=== PATIENT | male | born 1940 | race Caucasian/White ===

== ENCOUNTER → 2016-06-18 | Outpatient (CLI) | payer BC ==
[~2016-06-18] MED LIST: ASCO100061 PO; ATEN-175 PO; ATOR-22 PO; BNC/40 PO; ECON118C TOP; HYDR12.56 PO; LOSA100T65 PO; MAGN1TAB19 PEG; MAGN250T22 PO; MULT-506 PO; NIFE1TAB53 PO; POTA-335 PO; TRMO180 TOP; VTMEUNK PO
[2016-06-18 14:04] LABS: BASO % 0.4 %; BASO ABS # 0.03 K/uL (0-0.2); COMPLETE YES; EOS % 2.3 %; HEMATOCRIT 42.6 % (42-52); IG% 0.3 %; LYMPH ABS # 1.74 K/uL (1.2-3.4); MEAN CELL VOLUME 101.4 fL (80-100); MEAN CORPUSCULAR HEMOGLOBIN 35.2 pg (25-34); MEAN CORPUSCULAR HGB CONC 34.7 g/dl (32-36); MEAN PLATELET VOLUME 10.5 fL (7.4-10.4); MONO % 9.7 %; NEUT % 64.3 %; PLATELET COUNT 153 K/uL (130-400); WHITE BLOOD COUNT 7.55 K/uL (4.8-10.8)
[2016-06-18 14:14] LABS: BLOOD UREA NITROGEN 9 mg/dl (7-18); CALCIUM 8.4 mg/dl (8.5-10.1); CARBON DIOXIDE 28 mmol/L (21-32); CHLORIDE 104 mmol/L (98-107); CREATININE 0.69 mg/dl (0.60-1.40); GLUCOSE 108 mg/dl (70-99); POTASSIUM 3.6 mmol/L (3.5-5.1); SODIUM 142 mmol/L (136-145)
--- NOTE | 2016-06-24 12:05 | CODING QUERY MEDICAL NECESSITY ---
SUPPORTING DIAGNOSIS NEEDED A supporting diagnosis is required for the test/procedure performed on this patient in order for us to be reimbursed by the patient's insurance. Please provide a supporting diagnosis for the following test/procedure listed below next to the test name along with your signature. *If there is no additional diagnosis for this patient that would support the following test/procedure please document that below next to the test/procedure. Test(s)/Procedure(s) that require a supporting diagnosis: * VITAMIN B-12 LEVEL DIAGNOSIS: * DOS: 06/18/16 Provider Signature: Date: Thank you Patricia Lees Health Information Management Once completed, please kindly fax back to [phone] For questions please call [phone]
[2016-06-24 16:38] LABS: METHYLMALONIC ACID 70 NMOL/L (87-318)
== END | disposition home or self-care (01) ==
LOC: C.LABBC 09:50
PROVIDERS: ATTEND Internal Medicine Geriatric Medicine
DX: I10 Essential (primary) hypertension (principal); E78.5 Hyperlipidemia, unspecified; R73.9 Hyperglycemia, unspecified; D64.9 Anemia, unspecified; Q99.8 Other specified chromosome abnormalities; R60.9 Edema, unspecified

== ENCOUNTER → 2016-08-26 | Outpatient (CLI) | payer BC ==
[~2016-08-26] MED LIST changes: +ACET-1311 PO; +ACET650S10 RE; +BISA10SU38 PR; +CHOL4POW11 PO; +FEXO3TAB PO; +FOLI1TAB7 PO; +FRRS300 PO; +FRS/40 PO; +HALO5TAB PO; +IPRASOL4 INH; +LCTL45 PO; +MEGE40TA13 PO; +MELA1TAB5 PO; +MGCUDL400 PO; +MISCCAP80 PO; +MOMLX PO; +NICO1DIS9 TD; +ONDA4TAB46 PO; +RIFA550T2 PO; +SODIENE PR; +SPIR25TA PO; +THIA100T11 PO; +TNR25 PO
[2016-08-26 15:13] LABS: BLOOD UREA NITROGEN 15 mg/dl (7-18); BUN/CREATININE RATIO 17.7 (10-20); CARBON DIOXIDE 28 mmol/L (21-32); CHLORIDE 104 mmol/L (98-107); CREATININE 0.83 mg/dl (0.60-1.40); GLUCOSE 97 mg/dl (70-99); PHOSPHORUS 3.4 mg/dl (2.5-4.9); POTASSIUM 3.3 mmol/L (3.5-5.1); SODIUM 142 mmol/L (136-145)
[2016-08-26 15:17] LABS: CALCIUM 9.6 mg/dl (8.5-10.1)
== END | disposition home or self-care (01) ==
LOC: C.LABBC 10:10
PROVIDERS: ATTEND Internal Medicine Geriatric Medicine
DX: I10 Essential (primary) hypertension (principal)

== ENCOUNTER 2016-10-07 11:22 | Emergency (ER) | payer BC ==
[~2016-10-07] VITALS: Ht 180.3 cm; Wt 112.0 kg
[~2016-10-07 11:22] MED LIST changes: -ACET-1311 PO; -ACET650S10 RE; -BISA10SU38 PR; -CHOL4POW11 PO; -ECON118C TOP; -FEXO3TAB PO; -FOLI1TAB7 PO; -FRRS300 PO; -FRS/40 PO; -HALO5TAB PO; -HYDR12.56 PO; -IPRASOL4 INH; -LCTL45 PO; -LOSA100T65 PO; -MAGN1TAB19 PEG; -MEGE40TA13 PO; -MELA1TAB5 PO; -MGCUDL400 PO; -MISCCAP80 PO; -MOMLX PO; -NICO1DIS9 TD; -ONDA4TAB46 PO; -RIFA550T2 PO; -SODIENE PR; -SPIR25TA PO; -THIA100T11 PO; -TNR25 PO; -TRMO180 TOP
[2016-10-07] MEDS ORDERED: SODIUM CHLORIDE 0.9% 1000ML 1,000 ML IV STA (11:28)
[2016-10-07] MEDS ORDERED: THIAMINE HCL 100 MG/ML 2 ML VIAL IV STA (11:28)
[2016-10-07 11:29] VITALS: TEMP 36.7; Ht 180.3 cm; Wt 112.0 kg
--- NOTE | 2016-10-07 11:33 | EMERGENCY ROOM VISIT NOTE ---
History Report prepared by Amie: Judi Skelton Under the Supervision of: Dr. Yossi Jones D.O. 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 The patient states that he was walking up the stairs in his house and does not remember why he was going upstairs. He reports that he tripped when he was walking up the stairs and fell down to the bottom of the stairs. He notes that he was drinking today and had one screwdriver but usually has about 3 drinks a day. The patient's states that after the fall the patient was not talking and was confused. She notes that he was able to walk and he got himself up into a chair. He denies any chest pain, head pain, neck pain, abdominal pain, incontinence, and seizure-like activity. He notes a history of hypertension. 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 Review of Systems See HPI for pertinent positives & negatives. A total of 10 systems reviewed and were otherwise negative. Past Medical & Surgical Surgical Problems: (1) Hx of shoulder replacement Family History No pertinent family history stated. Social History Smoking Status: Current Every Day Smoker Alcohol Use: heavy Drug Use: none Marital Status: Occupation Status: retired Current/Historical Medications Scheduled Ascorbic Acid (Ascorbic Acid), 1,000 MG PO DAILY Atenolol (Tenormin), 100 MG PO DAILY Atorvastatin (Lipitor), 20 MG PO HS Econazole Nitrate (Econazole Nitrate), Unknown Dose TOP BID Hydrochlorothiazide (Hctz), 12.5 MG PO QAM Losartan Potassium (Cozaar), 100 MG PO QAM Magnesium Oxide (Mg Supplement (Magnesium Oxide), 400 MG PEG QPM Multivitamin (Multivitamin), 1 TAB PO DAILY Olmesartan Medoxomil (Benicar), 40 MG PO DAILY Tocopheryl Acet,Dl-Alpha (Vitamin E Unkown Dose), 1,000 INTER.UNIT PO DAILY Triamcinolone Acet (Triamcinolone Acetonide), Unknown Dose TOP BID Allergies Coded Allergies: No Known Allergies (Verified , 10/07/16) Physical Exam Vital Signs Date Time Temp Pulse Resp B/P (MAP) Pulse Ox O2 Delivery O2 Flow Rate FiO2 10/07/16 13:30 59 22 169/92 95 Room Air 10/07/16 12:14 56 10/07/16 11:45 97 Room Air 10/07/16 11:29 36.7 69 20 167/112 97 Room Air Physical Exam GENERAL: Patient is awake, alert, mildly anxious appearing but comfortable, cervical collar was applied prior to arrival. EYES: The conjunctivae are clear. The pupils are round and reactive. EARS, NOSE, MOUTH AND THROAT: The nose is without any evidence of any deformity. Mucous membranes are moist tongue is midline NECK: Cervical collar was removed, pt has no tenderness over midline ROM was unrestricted and without pain. RESPIRATORY: Lung sounds diminished at both bases no tachypnea or conversational dyspnea noted. CARDIOVASCULAR: Regular rate and rhythm noted there no murmurs rubs or gallops normal S1 normal S2 GASTROINTESTINAL: The abdomen is soft. Bowel sounds are present in all quadrants. Abdomen is nontender BACK: No midline tenderness or or step-off noted range of motion in flexion extension as well as rotation no signs of muscle spasm noted MUSCULOSKELETAL/EXTREMITIES: There is no evidence of gross deformity full range of motion is noted in the hips and shoulders SKIN: There is no obvious evidence of any rash. There are no petechiae, pallor or cyanosis noted. Trace pedal edema bilaterally. There is a large left occipital and parietal hematoma noted. NEUROLOGIC: Patient is awake alert and oriented x3 strength is symmetric patellar reflexes are 2+ bilaterally Medical Decision & Procedures ER Provider Diagnostic Interpretation: Radiology results as stated below per my review and radiologist interpretation: PELVIS 1 OR 2 VIEW ROUTINE FINDINGS: The sacroiliac joints and symphysis pubis are intact. There is extensive vascular calcification. There is no fracture within the pelvis. There is mild to moderate bilateral hip osteoarthritis. Multilevel degenerative disc disease is noted within visualized portions of the lumbar spine. There is subtle cortical irregularity right femoral neck. IMPRESSION: Subtle cortical irregularity of the right femoral neck. A fracture is considered unlikely and this is likely chronic however if persistent right hip pain, a CT is recommended. Electronically signed by: Glynn Bartholomew M.D. 10/07/2016 1:23 PM Dictated Date/Time: 10/07/2016 1:[address] NONCONTRAST Findings: Mild mucosal thickening within the paranasal sinuses. The mastoid air cells are clear. A large left posterior scalp hematoma. There is no mass, midline shift, or acute infarct. Trace subarachnoid hemorrhage at the left sylvian fissure and left parietal lobe. Trace extra-axial hematoma within the left frontal lobe which measures up to 4 mm in thickness. Impression: 1. Trace extra-axial hematoma within the left frontal lobe which measures 4 mm in thickness. This is too small to this time but could represent a tiny subdural hematoma versus an epidural hematoma. No adjacent calvarial fracture. [address] follow-up is recommended to ensure stability. 2. There is also trace subarachnoid hemorrhage/cortical contusion at the left sylvian fissure and left parietal lobe.. 3. Large left posterior scalp hematoma. Electronically signed by: Jan Hilario M.D. 10/07/2016 12:56 PM Dictated Date/Time: 10/07/2016 12:[address] OF THE CERVICAL SPINE WITHOUT CONTRAST FINDINGS: Craniocervical junction is intact. There is no acute cervical spine fracture. There is severe multilevel degenerative disc disease and facet arthrosis of the cervical spine. There is no prevertebral edema. IMPRESSION: 1. No acute cervical spine fracture or subluxation. 2. Severe multilevel degenerative disc disease and facet arthrosis of the cervical spine. Electronically signed by: Glynn Bartholomew M.D. 10/07/2016 12:56 PM Dictated Date/Time: 10/07/2016 12:53 PM CHEST 2 VIEWS ROUTINE FINDINGS: There are multiple old bilateral rib fractures. There is a right shoulder arthroplasty. No pneumothorax or pleural effusion is present. Cardiomediastinal silhouette is stable. There is no evidence of pulmonary edema. IMPRESSION: No acute cardiopulmonary findings. Electronically signed by: Glynn Bartholomew M.D. 10/07/2016 1:18 PM Dictated Date/Time: 10/07/2016 1:16 PM Laboratory Results 10/07/16 12:11 Red Blood Count 3.43, Mean Corpuscular Volume 102.6, Mean Corpuscular Hemoglobin 35.6, Mean Corpuscular Hemoglobin Concent 34.7, Mean Platelet Volume 9.4, Neutrophils (%) (Auto) 62.4, Lymphocytes (%) (Auto) 22.2, Monocytes (%) ( Auto) 12.0, Eosinophils (%) (Auto) 2.6, Basophils (%) (Auto) 0.4, Neutrophils # (Auto) 3.34, Lymphocytes # (Auto) 1.19, Monocytes # (Auto) 0.64, Eosinophils # ( Auto) 0.14, Basophils # (Auto) 0.02 10/07/16 12:11 Test 10/07/16 12:11 10/07/16 12:28 White Blood Count 5.35 K/uL (4.8-10.8) Red Blood Count 3.43 M/uL (4.7-6.1) Hemoglobin 12.2 g/dL (14.0-18.0) Hematocrit 35.2 % (42-52) Mean Corpuscular Volume 102.6 fL (80-100) Mean Corpuscular Hemoglobin 35.6 pg (25-34) Mean Corpuscular Hemoglobin Concent 34.7 g/dl (32-36) Platelet Count 103 K/uL (130-400) Mean Platelet Volume 9.4 fL (7.4-10.4) Neutrophils (%) (Auto) 62.4 % Lymphocytes (%) (Auto) 22.2 % Monocytes (%) (Auto) 12.0 % Eosinophils (%) (Auto) 2.6 % Basophils (%) (Auto) 0.4 % Neutrophils # (Auto) 3.34 K/uL (1.4-6.5) Lymphocytes # (Auto) 1.19 K/uL (1.2-3.4) Monocytes # (Auto) 0.64 K/uL (0.11-0.59) Eosinophils # (Auto) 0.14 K/uL (0-0.5) Basophils # (Auto) 0.02 K/uL (0-0.2) RDW Standard Deviation 51.8 fL (36.4-46.3) RDW Coefficient of Variation 13.7 % (11.5-14.5) Immature Granulocyte % (Auto) 0.4 % Immature Granulocyte # (Auto) 0.02 K/uL (0.00-0.02) Prothrombin Time 11.4 SECONDS (9.0-12.0) Prothromb Time International Ratio 1.1 (0.9-1.1) Activated Partial Thromboplast Time 27.8 SECONDS (21.0-31.0) Partial Thromboplastin Ratio 1.1 Anion Gap 10.0 mmol/L (3-11) Est Creatinine Clear Calc Drug Dose 98.2 ml/min Estimated GFR () 100.0 Estimated GFR (Non- 86.3 BUN/Creatinine Ratio 14.2 (10-20) Calcium Level 8.9 mg/dl (8.5-10.1) Magnesium Level 1.4 mg/dl (1.8-2.4) Total Bilirubin 0.7 mg/dl (0.2-1) Direct Bilirubin 0.3 mg/dl (0-0.2) Aspartate Amino Transf (AST/SGOT) 81 U/L (15-37) Alanine Aminotransferase (ALT/SGPT) 44 U/L (12-78) Alkaline Phosphatase 88 U/L (45-117) Total Creatine Kinase 63 U/L (39-308) Creatine Kinase MB 1.9 ng/ml (0.5-3.6) Creatine Kinase MB Ratio 3.0 (0-3.0) Troponin I 0.016 ng/ml (0-0.045) Total Protein 6.8 gm/dl (6.4-8.2) Albumin 3.1 gm/dl (3.4-5.0) Thyroid Stimulating Hormone (TSH) 1.820 uIu/ml (0.300-4.500) Free Thyroxine 1.01 ng/dl (0.80-1.60) Ethyl Alcohol mg/dL 153.0 mg/dl (0-3) Bedside Glucose 94 mg/dl (70-99) Laboratory results per my review. Medications Administered Medications (Trade) Dose Ordered Sig/Roxanne Route Start Time Stop Time Status Last Admin Dose Admin Sodium Chloride 1,000 ml @ 125 mls/hr Q8H STAT IV 10/07/16 11:28 10/07/16 19:27 10/07/16 12:21 125 MLS/HR Thiamine HCl (Vitamin B-1 Inj) 100 mg NOW STAT IV 10/07/16 11:28 10/07/16 11:30 DC 10/07/16 12:21 100 MG Sodium Chloride 500 ml @ 999 mls/hr Q31M STAT IV 10/07/16 13:28 10/07/16 13:58 DC 10/07/16 14:02 999 MLS/HR Phenytoin Sodium 2250 mg/Sodium Chloride 145 ml @ 193.333 mls/hr NOW STAT IV 10/07/16 13:44 10/07/16 14:28 10/07/16 14:05 193.333 MLS/HR ECG Indication: syncope Rate (beats per minute): 54 Rhythm: atrial fibrillation Findings: other (no PVC, no acute ST segment abnormalities) Comparison ECG Date: 11/25/14 Change: Atrial Fibrillation is new ED Course 1124: The patient was evaluated in room C3. A complete history and physical examination were performed. 1128: Thiamine HCl 100mg IV, NSS 1,000 ml @ 125 mls/hr IV. 1325: I discussed the patient's case with Dr. Holt. After discussion of the results, we both fel that he would be better cared for at a tertiary care center. 1327: Magnesium Sulfate 2gm IV. 1328: NSS 500 ml @ 999 mls/hr IV. 1331: I discussed the patient's case with Dr. Mazariegos of neurosurgery at [facility]. The patient will be evaluated for further management. 1334: Dilantin IV 2250mg IV. 1344: Phenytoin Sodium 2250mg/Sodium Chloride 145ml @ 193.333 mls/hr IV. 1345: I reevaluated and updated the patient. 1353: Upon reevaluation, the patient is doing well. I discussed results and treatment plan with the patient. He verbalizes agreement and understanding. I spoke with Dr. Mazariegos of the [facility]. The patient will be evaluated for further management and care at [facility]. Medical Decision Differential diagnosis: Etiologies such as vasovagal event, infection, hypoglycemia, electrolyte abnormalities, cardiac sources, intracerebral event, toxicologic, neurologic, as well as others were entertained. Medication Reconciliation: I attest that I have personally reviewed the patient' s current medications list. Patient was found to have a slightly elevated blood pressure due to circumstances of chest pain. I do not believe that the patient requires hypertension monitoring. Additional history is obtained from the patient's significant other. Additional history is obtained from the prehospital personnel. The patient is a 76-year-old male who presented to the emergency department after a fall. According to the patient's significant other the patient was walking up the stairs and then it is unclear if the patient fell or had a syncopal episode but he was found at the bottom of the stairs. There is no definite reported loss of consciousness but the patient was very dazed and it sounds as though he had some bit of time before he was able to be awake alert and oriented times 3. The patient arrived at the emergency department with a rigid cervical collar in place. He had no back tenderness and his cervical spine was clinically cleared as well as radiographically cleared. The patient had significant signs of head trauma and also had alcohol in his system. He admits to drinking alcohol almost on a daily basis. He is currently taking magnesium. He states that he has been compliant with his other medications. The patient was not clinically intoxicated. He understood what I was asking him and I feel that he was very forthcoming with his answers. The patient was found have a significant scalp hematoma as well as signs of intracranial bleeding. I discussed the patient's laboratory and radiographic studies with him. I discussed his case with the on-call [facility] hospitalist but given the patient's comorbidities and his new onset atrial fibrillation he may require a neurosurgical evaluation prior to beginning any anticoagulation treatment for his atrial fibrillation. Anticoagulation therapy in this patient would be very risky given his current alcohol use. For this reason I discussed his case with the on-call neurosurgical service at [facility]. They've agreed to accept the patient in transfer. Transfer paperwork was filled out by myself. At the request of neurosurgeon the patient was given 20 milligrams per kilogram of Dilantin. He was also treated with thiamine IV fluids and IV magnesium. He was reevaluated multiple times. The patient was agreeable with the plan. Consults Time Called: 1321 Consulting Physician: Dr. Holt Returned Call: 1321 I discussed the patient's case with Dr. Holt. After discussion of the results, we both fel that he would be better cared for at a tertiary care center. Additional Consults: Time Called: 1324 Consulted Physician: Dr. Mazariegos Returned Call: [phone] Additional Comments: I discussed the patient's case with Dr. Mazariegos of neurosurgery at [facility]. The patient will be evaluated for further management. Impression Primary Impression: Syncope Additional Impressions: Head injury Subarachnoid hemorrhage Traumatic subdural hematoma Left parietal scalp hematoma Hypomagnesemia New onset a-fib Alcohol intoxication Critical Care I have personally spent greater than 45 minutes of critical care time in the direct management of this patient. This includes bedside care, interpretation of diagnostic studies, and testing, discussion with consultants, patient, and family members, and other required patient management activities. This 45 minutes is in excess of all separately billable procedures. Scribe Attestation The scribe's documentation has been prepared under my direction and personally reviewed by me in its entirety. I confirm that the note above accurately reflects all work, treatment, procedures, and medical decision making performed by me. Departure Information Dispostion Transfer Acute Care Facility Referrals Vj Elmore M.D. (PCP) Problem Qualifiers Primary Impression: Syncope Syncope type: unspecified Qualified Codes: R55 - Syncope and collapse Additional Impressions: Head injury Encounter type: initial encounter Qualified Codes: S09.90XA - Unspecified injury of head, initial encounter Traumatic subdural hematoma Encounter type: initial encounter Loss of consciousness presence/duration: with LOC of unspecified duration Qualified Codes: S06.5X9A - Traumatic subdural hemorrhage with loss of consciousness of unspecified duration, initial encounter Left parietal scalp hematoma Encounter type: initial encounter Qualified Codes: S00.03XA - Contusion of scalp, initial encounter Alcohol intoxication Complication of substance-induced condition: uncomplicated Qualified Codes: F10.920 - Alcohol use, unspecified with intoxication, uncomplicated
[2016-10-07 11:45] VITALS: O2SAT 97
[2016-10-07] MEDS ORDERED: HYDR12.56 PO (11:48)
[2016-10-07] MEDS ORDERED: MAGN1TAB19 PEG (11:48)
[2016-10-07] MEDS ORDERED: TRMO180 TOP (11:48)
[2016-10-07] MEDS ORDERED: LOSA100T65 PO (11:48)
[2016-10-07] MEDS ORDERED: ECON118C TOP (11:48)
[2016-10-07 12:34] LABS: BASO % 0.4 %; BASO ABS # 0.02 K/uL (0-0.2); COMPLETE YES; EOS % 2.6 %; HEMATOCRIT 35.2 % (42-52); IG% 0.4 %; LYMPH % 22.2 %; LYMPH ABS # 1.19 K/uL (1.2-3.4); MEAN CELL VOLUME 102.6 fL (80-100); MEAN CORPUSCULAR HEMOGLOBIN 35.6 pg (25-34); MEAN CORPUSCULAR HGB CONC 34.7 g/dl (32-36); MEAN PLATELET VOLUME 9.4 fL (7.4-10.4); NEUT % 62.4 %; PLATELET COUNT 103 K/uL (130-400); RED BLOOD COUNT 3.43 M/uL (4.7-6.1); WHITE BLOOD COUNT 5.35 K/uL (4.8-10.8)
[2016-10-07 12:42] LABS: INR 1.1 (0.9-1.1); PARTIAL THROMBOPLASTIN RATIO 1.1; PROTHROMBIN TIME (PATIENT) 11.4 SECONDS (9.0-12.0)
[2016-10-07 12:52] LABS: BUN/CREATININE RATIO 14.2 (10-20); CALCIUM 8.9 mg/dl (8.5-10.1); CREATININE 0.84 mg/dl (0.60-1.40); MAGNESIUM 1.4 mg/dl (1.8-2.4); POTASSIUM 3.7 mmol/L (3.5-5.1)
--- NOTE | 2016-10-07 12:57 | DIAGNOSTIC IMAGING REPORT ---
CT OF THE CERVICAL SPINE WITHOUT CONTRAST CLINICAL HISTORY: Fall. COMPARISON STUDY: No previous studies for comparison. TECHNIQUE: Helical axial images of the cervical spine were obtained without IV contrast. Sagittal and coronal reconstructions were viewed. FINDINGS: Craniocervical junction is intact. There is no acute cervical spine fracture. There is severe multilevel degenerative disc disease and facet arthrosis of the cervical spine. There is no prevertebral edema. IMPRESSION: 1. No acute cervical spine fracture or subluxation. 2. Severe multilevel degenerative disc disease and facet arthrosis of the cervical spine. Electronically signed by: Glynn Bartholomew M.D. 10/07/2016 12:56 PM Dictated Date/Time: 10/07/2016 12:53 PM
--- NOTE | 2016-10-07 12:58 | DIAGNOSTIC IMAGING REPORT ---
HEAD CT NONCONTRAST CT DOSE: 1145.93 mGy.cm HISTORY: Head injury. Fall. EVALUATE ALTERED MENTAL STATUS/WEAKNESS TECHNIQUE: Multiaxial CT images of the head were performed without the use of intravenous contrast. Automated exposure control was utilized for this study. Comparison: Head CT 03/23/2014. Findings: Mild mucosal thickening within the paranasal sinuses. The mastoid air cells are clear. A large left posterior scalp hematoma. There is no mass, midline shift, or acute infarct. Trace subarachnoid hemorrhage at the left sylvian fissure and left parietal lobe. Trace extra-axial hematoma within the left frontal lobe which measures up to 4 mm in thickness. Impression: 1. Trace extra-axial hematoma within the left frontal lobe which measures 4 mm in thickness. This is too small to this time but could represent a tiny subdural hematoma versus an epidural hematoma. No adjacent calvarial fracture. [address] follow-up is recommended to ensure stability. 2. There is also trace subarachnoid hemorrhage/cortical contusion at the left sylvian fissure and left parietal lobe.. 3. Large left posterior scalp hematoma. Electronically signed by: Jan Hilario M.D. 10/07/2016 12:56 PM Dictated Date/Time: 10/07/2016 12:51 PM
[2016-10-07 13:08] LABS: THYROID STIMULATING HORMONE 1.82 uIu/ml (0.300-4.500)
--- NOTE | 2016-10-07 13:19 | DIAGNOSTIC IMAGING REPORT ---
CHEST 2 VIEWS ROUTINE CLINICAL HISTORY: Altered mental status. Fall. COMPARISON STUDY: Chest radiograph November 27, 2014. FINDINGS: There are multiple old bilateral rib fractures. There is a right shoulder arthroplasty. No pneumothorax or pleural effusion is present. Cardiomediastinal silhouette is stable. There is no evidence of pulmonary edema. IMPRESSION: No acute cardiopulmonary findings. Electronically signed by: Glynn Bartholomew M.D. 10/07/2016 1:18 PM Dictated Date/Time: 10/07/2016 1:16 PM
--- NOTE | 2016-10-07 13:24 | DIAGNOSTIC IMAGING REPORT ---
PELVIS 1 OR 2 VIEW ROUTINE CLINICAL HISTORY: Fall. Weakness. COMPARISON STUDY: Sacroiliac joint radiographs August 17, 2009. FINDINGS: The sacroiliac joints and symphysis pubis are intact. There is extensive vascular calcification. There is no fracture within the pelvis. There is mild to moderate bilateral hip osteoarthritis. Multilevel degenerative disc disease is noted within visualized portions of the lumbar spine. There is subtle cortical irregularity right femoral neck. IMPRESSION: Subtle cortical irregularity of the right femoral neck. A fracture is considered unlikely and this is likely chronic however if persistent right hip pain, a CT is recommended. Electronically signed by: Glynn Bartholomew M.D. 10/07/2016 1:23 PM Dictated Date/Time: 10/07/2016 1:18 PM
[2016-10-07] MEDS: MAGNESIUM SULFATE 1GM / D5W 1 GM BAG IV STA ×2 (13:27→15:06)
[2016-10-07] MEDS ORDERED: SODIUM CHLORIDE 0.9% 500ML 500 ML IV STA (13:28)
[2016-10-07] MEDS ORDERED: PHENYTOIN SOD INJ 50 MG/ML 2 ML SYR IV STA (13:34)
[2016-10-07] MEDS ORDERED: SODIUM CHLORIDE 0.9% IV STA (13:44)
[2016-10-07] MEDS ORDERED: PHENYTOIN INFUSION IV STA (13:44)
--- NOTE | 2016-10-07 14:59 | DIAGNOSTIC IMAGING REPORT ---
RIGHT HIP 2 VIEWS HISTORY: Right hip pain. fall Right COMPARISON: None. FINDINGS: There is no fracture or dislocation. Soft tissues are unremarkable. No radiopaque foreign bodies. IMPRESSION: No fracture or dislocation within the right hip. Electronically signed by: Jan Hilario M.D. 10/07/2016 2:57 PM Dictated Date/Time: 10/07/2016 2:56 PM
[2016-10-07 15:55] VITALS: BP 153/90; PULSE 63; O2SAT 95
== END 2016-10-07 15:56 | disposition short-term general hospital (02) ==
LOC: EDBD 11:22 → C.EDC 11:24
DX: R55 Syncope and collapse (principal); S06.6X0A Traumatic subarachnoid hemorrhage without loss of consciousness, initial encounter; S06.5X0A Traumatic subdural hemorrhage without loss of consciousness, initial encounter; S09.90XA Unspecified injury of head, initial encounter; S00.03XA Contusion of scalp, initial encounter; W01.0XXA Fall on same level from slipping, tripping and stumbling without subsequent striking against object, initial encounter; I48.91 Unspecified atrial fibrillation; E83.42 Hypomagnesemia; F10.129 Alcohol abuse with intoxication, unspecified; Y90.6 Blood alcohol level of 120-199 mg/100 ml; F17.200 Nicotine dependence, unspecified, uncomplicated; Z96.619 Presence of unspecified artificial shoulder joint; Z79.899 Other long term (current) drug therapy

== ENCOUNTER → 2017-02-06 | Outpatient (CLI) | payer BC ==
[~2017-02-06] MED LIST changes: +ECON118C TOP; +HYDR12.56 PO; +LOSA100T65 PO; +MAGN1TAB19 PEG; -MAGN250T22 PO; -NIFE1TAB53 PO; -POTA-335 PO; +TRMO180 TOP
[2017-02-06 08:56] LABS: BASO % 0.2 %; BASO ABS # 0.02 K/uL (0-0.2); COMPLETE YES; EOS % 0.5 %; HEMATOCRIT 40.6 % (42-52); IG% 0.5 %; LYMPH % 20.2 %; LYMPH ABS # 2.62 K/uL (1.2-3.4); MEAN CELL VOLUME 91.2 fL (80-100); MEAN PLATELET VOLUME 10.5 fL (7.4-10.4); MONO % 9.2 %; NEUT % 69.4 %; PLATELET COUNT 251 K/uL (130-400); RED BLOOD COUNT 4.45 M/uL (4.7-6.1); WHITE BLOOD COUNT 12.96 K/uL (4.8-10.8)
[2017-02-06 09:03] LABS: ALT/SGPT 18 U/L (12-78); BLOOD UREA NITROGEN 44 mg/dl (7-18); BUN/CREATININE RATIO 19.4 (10-20); CALCIUM 10.1 mg/dl (8.5-10.1); CARBON DIOXIDE 18 mmol/L (21-32); CHLORIDE 102 mmol/L (98-107); CREATININE 2.28 mg/dl (0.60-1.40); GLUCOSE 96 mg/dl (70-99); POTASSIUM 5.5 mmol/L (3.5-5.1); SODIUM 130 mmol/L (136-145)
[2017-02-06 09:06] LABS: ALB/GLOB RATIO 0.7 (0.9-2); ALKALINE PHOSPHATASE 99 U/L (45-117); AST/SGOT 12 U/L (15-37)
== END ==
LOC: C.LABUPHEI 08:44
PROVIDERS: ATTEND Nurse Practitioner Family
DX: K74.60 Unspecified cirrhosis of liver (principal)

== ENCOUNTER → 2017-02-09 | Outpatient (CLI) | payer BC ==
[2017-02-09 09:40] LABS: BLOOD UREA NITROGEN 34 mg/dl (7-18); CREATININE 1.07 mg/dl (0.60-1.40); GLUCOSE 88 mg/dl (70-99)
[2017-02-09 09:41] LABS: BUN/CREATININE RATIO 32.1 (10-20); CALCIUM 9.7 mg/dl (8.5-10.1); CARBON DIOXIDE 20 mmol/L (21-32); CHLORIDE 102 mmol/L (98-107); POTASSIUM 4.9 mmol/L (3.5-5.1); SODIUM 132 mmol/L (136-145)
[2017-02-09 09:43] LABS: PARTIAL THROMBOPLASTIN RATIO 1.3; PROTHROMBIN TIME (PATIENT) 10.4 SECONDS (9.0-12.0)
== END ==
LOC: C.LABUPHEI 09:08
PROVIDERS: ATTEND Nurse Practitioner Family
DX: K74.60 Unspecified cirrhosis of liver (principal)

== ENCOUNTER → 2017-02-10 | Outpatient (CLI) | payer BC ==
[~2017-02-10] MED LIST changes: +ACET-1311 PO; +ACET650S10 RE; +BISA10SU38 PR; +CHOL4POW11 PO; +FEXO3TAB PO; +FOLI1TAB8 PO; +FRRS300 PO; +FRS/40 PO; +HALO5TAB PO; +IPRASOL4 INH; +LCTL45 PO; +MEGE40TA13 PO; +MELA1TAB5 PO; +MGCUDL400 PO; +MISCCAP80 PO; +MOMLX PO; +NICO1DIS9 TD; +ONDA4TAB46 PO; +RIFA550T2 PO; +SODIENE PR; +SPIR25TA PO; +THIA100T11 PO; +TNR25 PO
== END ==
LOC: C.LABUPHEI 08:03
PROVIDERS: ATTEND Nurse Practitioner Family
DX: Z01.89 Encounter for other specified special examinations (principal)

== ENCOUNTER → 2017-02-16 | Outpatient (CLI) | payer BC ==
[~2017-02-16] MED LIST changes: -ACET-1311 PO; -ACET650S10 RE; -BISA10SU38 PR; -CHOL4POW11 PO; -FEXO3TAB PO; -FOLI1TAB8 PO; -FRRS300 PO; -FRS/40 PO; -HALO5TAB PO; -IPRASOL4 INH; -LCTL45 PO; -MEGE40TA13 PO; -MELA1TAB5 PO; -MGCUDL400 PO; -MISCCAP80 PO; -MOMLX PO; -NICO1DIS9 TD; -ONDA4TAB46 PO; -RIFA550T2 PO; -SODIENE PR; -SPIR25TA PO; -THIA100T11 PO; -TNR25 PO
[2017-02-16 09:22] LABS: BLOOD UREA NITROGEN 45 mg/dl (7-18); CARBON DIOXIDE 18 mmol/L (21-32); CHLORIDE 102 mmol/L (98-107); CREATININE 1.42 mg/dl (0.60-1.40); GLUCOSE 103 mg/dl (70-99); POTASSIUM 5.1 mmol/L (3.5-5.1); SODIUM 131 mmol/L (136-145)
== END ==
LOC: C.LABUPHEI 08:51
PROVIDERS: ATTEND Nurse Practitioner Family
DX: K74.60 Unspecified cirrhosis of liver (principal)

== ENCOUNTER → 2017-02-19 | Outpatient (CLI) | payer BC ==
[2017-02-19 10:00] LABS: URINE APPEARANCE CLOUDY (CLEAR); URINE BILIRUBIN NEG (NEG); URINE COLOR YELLOW; URINE NITRITE POS (NEG); URINE SPECIFIC GRAVITY 1.021 (1.000-1.030); UROBILINOGEN NEG (NEG); ZZUR CULT IF INDIC CLEAN CATCH YES
[2017-02-19 10:02] LABS: BLOOD UREA NITROGEN 57 mg/dl (7-18); BUN/CREATININE RATIO 35.2 (10-20); CALCIUM 9.7 mg/dl (8.5-10.1); CARBON DIOXIDE 23 mmol/L (21-32); CHLORIDE 99 mmol/L (98-107); CREATININE 1.62 mg/dl (0.60-1.40); GLUCOSE 92 mg/dl (70-99); POTASSIUM 5.1 mmol/L (3.5-5.1); SODIUM 129 mmol/L (136-145)
[2017-02-19 10:03] LABS: MANUAL MICROSCOPIC REQUIRED? NO; REVIEW REQ? NO
[2017-02-19 10:05] LABS: ALB/GLOB RATIO 0.5 (0.9-2); ALKALINE PHOSPHATASE 97 U/L (45-117); ALT/SGPT 17 U/L (12-78); AST/SGOT 15 U/L (15-37)
[2017-02-19 10:30] LABS: HEMATOCRIT 35.1 % (42-52); MEAN CELL VOLUME 89.3 fL (80-100); MEAN CORPUSCULAR HEMOGLOBIN 30.8 pg (25-34); MEAN CORPUSCULAR HGB CONC 34.5 g/dl (32-36); PLATELET COUNT 233 K/uL (130-400); RED BLOOD COUNT 3.93 M/uL (4.7-6.1); WHITE BLOOD COUNT 9.94 K/uL (4.8-10.8)
[2017-02-19 10:32] LABS: BASO % 0.1 %; BASO ABS # 0.01 K/uL (0-0.2); COMPLETE YES; EOS % 0.6 %; HYPERSEGMENTED POLYS 1+; IG% 0.2 %; LYMPH % 14.4 %; LYMPH ABS # 1.43 K/uL (1.2-3.4); MONO % 10.4 %; NEUT % 74.3 %; TOXIC GRANULATION 1+; VACUOLIZATION 1+
== END ==
LOC: C.LABUPHEI 08:51
PROVIDERS: ATTEND Nurse Practitioner Family
DX: K74.60 Unspecified cirrhosis of liver (principal); R41.0 Disorientation, unspecified

== ENCOUNTER → 2017-02-23 | Outpatient (CLI) | payer BC ==
[2017-02-23 10:53] LABS: BLOOD UREA NITROGEN 46 mg/dl (7-18); BUN/CREATININE RATIO 39.6 (10-20); CALCIUM 10.3 mg/dl (8.5-10.1); CARBON DIOXIDE 21 mmol/L (21-32); CHLORIDE 101 mmol/L (98-107); CREATININE 1.16 mg/dl (0.60-1.40); GLUCOSE 102 mg/dl (70-99); POTASSIUM 4.7 mmol/L (3.5-5.1); SODIUM 135 mmol/L (136-145)
== END ==
LOC: C.LABUPHEI 09:27
PROVIDERS: ATTEND Nurse Practitioner Family
DX: K74.60 Unspecified cirrhosis of liver (principal)

== ENCOUNTER → 2017-02-26 | Outpatient (CLI) | payer BC ==
[2017-02-26 09:12] LABS: BASO % 0.1 %; BASO ABS # 0.01 K/uL (0-0.2); COMPLETE YES; EOS % 0.8 %; HEMATOCRIT 36.8 % (42-52); IG% 0.4 %; LYMPH % 12.9 %; LYMPH ABS # 1.81 K/uL (1.2-3.4); MEAN CELL VOLUME 90.2 fL (80-100); MEAN CORPUSCULAR HEMOGLOBIN 30.9 pg (25-34); MEAN CORPUSCULAR HGB CONC 34.2 g/dl (32-36); MEAN PLATELET VOLUME 9.6 fL (7.4-10.4); MONO % 8.3 %; NEUT % 77.5 %; PLATELET COUNT 274 K/uL (130-400); RED BLOOD COUNT 4.08 M/uL (4.7-6.1); WHITE BLOOD COUNT 14.06 K/uL (4.8-10.8)
[2017-02-26 09:19] LABS: BLOOD UREA NITROGEN 44 mg/dl (7-18); BUN/CREATININE RATIO 33.8 (10-20); CALCIUM 10.5 mg/dl (8.5-10.1); CARBON DIOXIDE 23 mmol/L (21-32); CHLORIDE 103 mmol/L (98-107); CREATININE 1.29 mg/dl (0.60-1.40); GLUCOSE 103 mg/dl (70-99); POTASSIUM 4.3 mmol/L (3.5-5.1); SODIUM 134 mmol/L (136-145)
== END ==
LOC: C.LABUPHEI 08:42
PROVIDERS: ATTEND Nurse Practitioner Family
DX: R19.7 Diarrhea, unspecified (principal); K74.60 Unspecified cirrhosis of liver

== ENCOUNTER → 2017-02-27 | Outpatient (CLI) | payer BC ==
[2017-02-27 08:58] LABS: BASO % 0.1 %; BASO ABS # 0.01 K/uL (0-0.2); COMPLETE YES; EOS % 1.2 %; HEMATOCRIT 38.8 % (42-52); IG% 0.5 %; LYMPH % 15.3 %; LYMPH ABS # 1.54 K/uL (1.2-3.4); MEAN CELL VOLUME 90.2 fL (80-100); MEAN CORPUSCULAR HEMOGLOBIN 30.5 pg (25-34); MEAN CORPUSCULAR HGB CONC 33.8 g/dl (32-36); MEAN PLATELET VOLUME 9.8 fL (7.4-10.4); MONO % 9.1 %; NEUT % 73.8 %; PLATELET COUNT 278 K/uL (130-400); WHITE BLOOD COUNT 10.08 K/uL (4.8-10.8)
[2017-02-27 09:12] LABS: ALB/GLOB RATIO 0.5 (0.9-2); ALKALINE PHOSPHATASE 89 U/L (45-117); ALT/SGPT 32 U/L (12-78); AST/SGOT 16 U/L (15-37); BLOOD UREA NITROGEN 42 mg/dl (7-18); BUN/CREATININE RATIO 33.5 (10-20); CALCIUM 10.5 mg/dl (8.5-10.1); CARBON DIOXIDE 22 mmol/L (21-32); CHLORIDE 104 mmol/L (98-107); CREATININE 1.24 mg/dl (0.60-1.40); GLUCOSE 89 mg/dl (70-99); SODIUM 141 mmol/L (136-145)
== END ==
LOC: C.LABUPHEI 08:40
PROVIDERS: ATTEND Nurse Practitioner Family
DX: K74.60 Unspecified cirrhosis of liver (principal)

== ENCOUNTER → 2017-02-28 | Outpatient (CLI) | payer BC ==
[~2017-02-28] MED LIST changes: +ACET-1311 PO; +ACET650S10 RE; +BISA10SU38 PR; +CHOL4POW11 PO; +FEXO3TAB PO; +FOLI1TAB7 PO; +FRRS300 PO; +FRS/40 PO; +HALO5TAB PO; +IPRASOL4 INH; +LCTL45 PO; +MEGE40TA13 PO; +MELA1TAB5 PO; +MGCUDL400 PO; +MISCCAP80 PO; +MOMLX PO; +NICO1DIS9 TD; +ONDA4TAB46 PO; +RIFA550T2 PO; +SODIENE PR; +SPIR25TA PO; +THIA100T11 PO; +TNR25 PO
[2017-02-28 07:13] LABS: URINE APPEARANCE CLEAR (CLEAR); URINE BILIRUBIN NEG (NEG); URINE COLOR YELLOW; URINE NITRITE NEG (NEG); URINE SPECIFIC GRAVITY 1.025 (1.000-1.030); UROBILINOGEN NEG (NEG); ZZURINE CULT IF INDIC CATH NO
[2017-02-28 07:19] LABS: MANUAL MICROSCOPIC REQUIRED? NO; REVIEW REQ? NO
== END ==
LOC: C.LABUPHEI 11:58
PROVIDERS: ATTEND Nurse Practitioner Family
DX: R41.82 Altered mental status, unspecified (principal)

== ENCOUNTER → 2017-03-04 | Outpatient (CLI) | payer BC ==
[~2017-03-04] MED LIST changes: -ACET-1311 PO; -ACET650S10 RE; -BISA10SU38 PR; -CHOL4POW11 PO; -FEXO3TAB PO; -FOLI1TAB7 PO; -FRRS300 PO; -FRS/40 PO; -HALO5TAB PO; -IPRASOL4 INH; -LCTL45 PO; -MEGE40TA13 PO; -MELA1TAB5 PO; -MGCUDL400 PO; -MISCCAP80 PO; -MOMLX PO; -NICO1DIS9 TD; -ONDA4TAB46 PO; -RIFA550T2 PO; -SODIENE PR; -SPIR25TA PO; -THIA100T11 PO; -TNR25 PO
[2017-03-04 08:35] LABS: BASO % 0.2 %; BASO ABS # 0.02 K/uL (0-0.2); COMPLETE YES; EOS % 0.8 %; HEMATOCRIT 36.4 % (42-52); IG% 0.2 %; LYMPH % 17.4 %; LYMPH ABS # 1.56 K/uL (1.2-3.4); MEAN CELL VOLUME 88.1 fL (80-100); MEAN CORPUSCULAR HEMOGLOBIN 30.8 pg (25-34); MEAN CORPUSCULAR HGB CONC 34.9 g/dl (32-36); MONO % 9.4 %; PLATELET COUNT 236 K/uL (130-400); RED BLOOD COUNT 4.13 M/uL (4.7-6.1); WHITE BLOOD COUNT 8.96 K/uL (4.8-10.8)
[2017-03-04 08:43] LABS: BLOOD UREA NITROGEN 41 mg/dl (7-18); BUN/CREATININE RATIO 37.2 (10-20); CALCIUM 9.4 mg/dl (8.5-10.1); CARBON DIOXIDE 19 mmol/L (21-32); CHLORIDE 107 mmol/L (98-107); CREATININE 1.09 mg/dl (0.60-1.40); GLUCOSE 86 mg/dl (70-99); POTASSIUM 5.2 mmol/L (3.5-5.1); SODIUM 135 mmol/L (136-145)
== END ==
LOC: C.LABUPHEI 07:49
PROVIDERS: ATTEND Nurse Practitioner Family
DX: K74.60 Unspecified cirrhosis of liver (principal)

== ENCOUNTER → 2017-03-04 | Outpatient (CLI) | payer BC | LOC: C.LABUPHEI 12:00 | PROVIDERS: ATTEND Nurse Practitioner Family | DX: K74.60 Unspecified cirrhosis of liver (principal) ==

== ENCOUNTER 2017-03-14 08:14 | Emergency (ER) | payer BC ==
--- NOTE | 2017-03-14 08:25 | EMERGENCY ROOM VISIT NOTE ---
History Report prepared by Amie: Linus Gómez Under the Supervision of: Dr. Clemente Gutierrez M.D. First contact with patient: 08:17 Stated Complaint: LOW SPO 2 History of Present Illness The patient is a 76 year old male with dementia who presents to the Emergency Room via EMS with a persistent low oxygen saturation that was detected prior to arrival this morning. Per EMS, the patient is coming from [facility], and he is there for his cirrhosis. The patient states that he currently feels fine, but is a bit cold. He says that he is not having any pain, and specifically any chest pain or abdominal pain. He notes that he is breathing okay. Per EMS, the patient is said to be normally a bit confused, but has been declining over the past 2 weeks. Per the patient's , the patient has been noted to be getting weaker. The patient is on blood pressure medication. Source of History: patient, spouse/significant other, EMS Onset: Detected earlier this morning Position: other (global - low oxygen saturation) Quality: other (declining for past 2 weeks) Timing: other (persistent) Associated Symptoms: + weakness, No chest pain, No abdominal pain Note: Associated symptoms: Normally a bit confused, but declining over past 2 weeks. Denies any pain, but notes he is cold. Says his breathing is okay. Review of Systems All systems have been listed, reviewed, and are negative other than those previously mentioned. Please see Additional Medical History Sheet. Past Medical & Surgical Medical Problems: (1) Cirrhosis (2) Dementia Surgical Problems: (1) Hx of shoulder replacement Family History No pertinent family history Social History Smoking Status: Current Every Day Smoker Alcohol Use: heavy Drug Use: none Marital Status: Occupation Status: retired Current/Historical Medications Scheduled Atenolol (Atenolol), 25 MG PO QAM Atorvastatin (Lipitor), 20 MG PO HS Cholestyramine (Questran), 1 DOSE PO BID18 Ferrous Sulfate (Ferrous Sulfate), 325 MG PO QAM Fexofenadine HCl (Mucinex Allergy), 600 MG PO BID Folic Acid (Folvite), 0.5 MG PO QAM Furosemide (Lasix), 40 MG PO QAM Haloperidol (Haldol), 5 MG PO BID18 Lactulose (Lactulose), 45 ML PO QAM Megestrol Acetate (Megestrol Acetate), 400 MG PO QAM Melatonin (Kp Melatonin), 3 MG PO HS Nicotine (Nicotine Step 3), 1 UNIT TD DAILY Ondansetron Hcl (Zofran), 4 MG PO QID Probiotic Product (Probiotic), 1 CAP PO QAM Rifaximin (Xifaxan), 550 MG PO BID18 Spironolactone (Aldactone), 25 MG PO QAM Thiamine Hcl (Vitamin B-1), 100 MG PO QAM Scheduled PRN Acetaminophen (Tylenol), 650 MG PO Q6 PRN for Pain or Fever Acetaminophen (Tylenol), 650 MG RE Q6 PRN for Fever Bisacodyl (Dulcolax), 1 SUPP WA DAILY PRN for Constipation Ipratropium-Albuterol (Duoneb), 1 TREATMENT INH QID PRN for Wheezing Magnesium Hydroxide (Milk of Magnesia), 30 ML PO DAILY PRN for Constipation Sodium Phosphate/Biphosphate (Fleet Enema), 1 EA WA DAILY PRN for Constipation Miscellaneous Medications Megestrol Acetate (Megace), 40 MG PO Allergies Coded Allergies: No Known Allergies (Verified , 03/14/17) Physical Exam Vital Signs Date Time Temp Pulse Resp B/P (MAP) Pulse Ox O2 Delivery O2 Flow Rate FiO2 03/14/17 14:07 95 20 103/69 95 03/14/17 12:32 36.5 74 19 98/66 94 Room Air 03/14/17 12:06 87 03/14/17 10:55 76 20 123/75 97 Room Air 03/14/17 10:08 66 20 95/61 98 Room Air 03/14/17 09:31 66 18 83/49 96 Room Air 88/60 03/14/17 08:36 97 Room Air 03/14/17 08:29 72 03/14/17 08:27 36.5 68 20 94/58 96 Room Air Physical Exam GENERAL: Patient is disoriented and confused. Patient follows most commands. Patient is adequately hydrated and well-nourished. SKIN: No erythema, pallor, cyanosis or rash HEENT: Normal head, pupils equal, reactive to light and accommodation. Ears normal. LUNGS: Clear to auscultation. No wheezes, no rales, no rhonchi. HEART: No murmurs. No gallops. No rubs ABDOMEN: Old scar over left upper quadrant. No masses, no rebound, no hepatomegaly or splenomegaly. EXTREMITIES: Old scar over right shoulder. Small bruise over left knee, full range of motion of left knee. No pedal or pretibial edema. No calf or thigh tenderness. NEUROLOGIC: Cranial nerves II-XII within normal limits. No gross motor sensory function deficits. Medical Decision & Procedures ER Provider Diagnostic Interpretation: X ray results are stated below per my interpretation and the radiologist's interpretation. CHEST 2 VIEWS ROUTINE HISTORY: 76 years-old Male hypoxia acute hypoxia with shortness of breath COMPARISON: Chest radiograph 10/07/2016 TECHNIQUE: AP and lateral views of the chest FINDINGS: Cardiac silhouette is within normal limits. Atherosclerosis of the aorta. No pneumothorax, pleural effusion, focal airspace consolidation or overt pulmonary edema. Remote bilateral rib fractures redemonstrated. Right shoulder arthroplasty with heterotopic periarticular ossifications. Degenerative changes are seen about the left shoulder and spine. The bones appear osteopenic. Multilevel endplate degenerative changes of the spine. IMPRESSION: No acute cardiopulmonary process. The above report was generated using voice recognition software. It may contain grammatical, syntax or spelling errors. Electronically signed by: Baltazar Perez M.D. 03/14/2017 9:24 AM Dictated Date/Time: 03/14/2017 9:23 AM Laboratory Results 03/14/17 08:45 Red Blood Count 4.44, Mean Corpuscular Volume 87.4, Mean Corpuscular Hemoglobin 30.2, Mean Corpuscular Hemoglobin Concent 34.5, Mean Platelet Volume 9.5, Neutrophils (%) (Auto) 85.0, Lymphocytes (%) (Auto) 8.0, Monocytes (%) (Auto) 6.4, Eosinophils (%) (Auto) 0.2, Basophils (%) (Auto) 0.1, Neutrophils # (Auto) 8.62, Lymphocytes # (Auto) 0.81, Monocytes # (Auto) 0.65, Eosinophils # (Auto) 0.02, Basophils # (Auto) 0.01 03/14/17 08:45 Test 03/14/17 08:45 03/14/17 10:19 White Blood Count 10.14 K/uL (4.8-10.8) Red Blood Count 4.44 M/uL (4.7-6.1) Hemoglobin 13.4 g/dL (14.0-18.0) Hematocrit 38.8 % (42-52) Mean Corpuscular Volume 87.4 fL (80-100) Mean Corpuscular Hemoglobin 30.2 pg (25-34) Mean Corpuscular Hemoglobin Concent 34.5 g/dl (32-36) Platelet Count 217 K/uL (130-400) Mean Platelet Volume 9.5 fL (7.4-10.4) Neutrophils (%) (Auto) 85.0 % Lymphocytes (%) (Auto) 8.0 % Monocytes (%) (Auto) 6.4 % Eosinophils (%) (Auto) 0.2 % Basophils (%) (Auto) 0.1 % Neutrophils # (Auto) 8.62 K/uL (1.4-6.5) Lymphocytes # (Auto) 0.81 K/uL (1.2-3.4) Monocytes # (Auto) 0.65 K/uL (0.11-0.59) Eosinophils # (Auto) 0.02 K/uL (0-0.5) Basophils # (Auto) 0.01 K/uL (0-0.2) RDW Standard Deviation 44.9 fL (36.4-46.3) RDW Coefficient of Variation 13.9 % (11.5-14.5) Immature Granulocyte % (Auto) 0.3 % Immature Granulocyte # (Auto) 0.03 K/uL (0.00-0.02) Anion Gap 10.0 mmol/L (3-11) Estimated GFR () 69.3 Estimated GFR (Non- 59.8 BUN/Creatinine Ratio 31.3 (10-20) Calcium Level 9.1 mg/dl (8.5-10.1) Total Bilirubin 0.5 mg/dl (0.2-1) Aspartate Amino Transf (AST/SGOT) 14 U/L (15-37) Alanine Aminotransferase (ALT/SGPT) 11 U/L (12-78) Alkaline Phosphatase 88 U/L (45-117) Troponin I 0.037 ng/ml (0-0.045) Total Protein 7.0 gm/dl (6.4-8.2) Albumin 2.7 gm/dl (3.4-5.0) Globulin 4.3 gm/dl (2.5-4.0) Albumin/Globulin Ratio 0.6 (0.9-2) Ammonia 27.8 umol/L (11-32) Laboratory results as stated above per my review. Medications Administered Medications (Trade) Dose Ordered Sig/Roxanne Route Start Time Stop Time Status Last Admin Dose Admin Sodium Chloride 1,000 ml @ 1,000 mls/hr Q1H ONCE IV 03/14/17 09:45 03/14/17 10:44 DC 03/14/17 09:40 1,000 MLS/HR ECG Indication: SOB/dyspnea Rate (beats per minute): 69 Rhythm: normal sinus Findings: no acute ischemic change, left axis deviation, no ectopy, other ( significant amounts of artifact, reading is somewhat difficult due to artifact) ED Course 0817: Past medical records reviewed. The patient was evaluated in room A2. A complete history and physical examination was performed. 0945: Ordered NSS 1000 ml @ 1000 mls/hr IV. 1238: I reevaluated and updated the patient and family. 1258: I reevaluated the patient and spoke with his . She says that the patient was thought to be hypoxic at the care home and a little weak. I told her that nothing bad was found, so the patient and are agreeable to go back to the care home. The patient will be discharged. Medical Decision Nurses notes reviewed. Medical history sheet reviewed. Differential diagnosis includes but is not limited to: pneumonia, PE, bronchitis, KS, cardiomyopathy, CHF, cirrhosis, hepatic failure, dehydration, metabolic disorder. Multiple labs, EKG and imaging were obtained. Please see above. Wells criteria for PE was low. I do not believe the patient requires d-dimer further CT imaging. The patient was not hypoxic while here in the ED. White count is not elevated. The patient is mildly anemic. Liver enzymes are not elevated. Ammonia is not elevated. I believe the patient is safe to return back to the nursing facility. I did discuss care with the patient's spouse. Medication Reconcilliation Current Medication List: was personally reviewed by me Blood Pressure Screening Patient's blood pressure: Normal blood pressure Impression Primary Impression: Weakness Additional Impressions: Dementia History of cirrhosis Scribe Attestation The scribe's documentation has been prepared under my direction and personally reviewed by me in its entirety. I confirm that the note above accurately reflects all work, treatment, procedures, and medical decision making performed by me. Departure Information Dispostion Home / Self-Care Referrals Magali Bobo (PCP) Additional Instructions Continue all of your current medications as prescribed. Problem Qualifiers
[2017-03-14 08:36] VITALS: O2SAT 97
[2017-03-14 08:58] LABS: BASO % 0.1 %; BASO ABS # 0.01 K/uL (0-0.2); COMPLETE YES; EOS % 0.2 %; HEMATOCRIT 38.8 % (42-52); IG% 0.3 %; LYMPH ABS # 0.81 K/uL (1.2-3.4); MEAN CELL VOLUME 87.4 fL (80-100); MEAN CORPUSCULAR HEMOGLOBIN 30.2 pg (25-34); MEAN CORPUSCULAR HGB CONC 34.5 g/dl (32-36); MEAN PLATELET VOLUME 9.5 fL (7.4-10.4); MONO % 6.4 %; PLATELET COUNT 217 K/uL (130-400); RED BLOOD COUNT 4.44 M/uL (4.7-6.1); WHITE BLOOD COUNT 10.14 K/uL (4.8-10.8)
[2017-03-14 09:15] LABS: ALT/SGPT 11 U/L (12-78); BLOOD UREA NITROGEN 37 mg/dl (7-18); BUN/CREATININE RATIO 31.3 (10-20); CALCIUM 9.1 mg/dl (8.5-10.1); CARBON DIOXIDE 19 mmol/L (21-32); CHLORIDE 106 mmol/L (98-107); CREATININE 1.19 mg/dl (0.60-1.40); GLUCOSE 93 mg/dl (70-99); POTASSIUM 4.5 mmol/L (3.5-5.1); SODIUM 135 mmol/L (136-145)
[2017-03-14 09:20] LABS: ALB/GLOB RATIO 0.6 (0.9-2); ALKALINE PHOSPHATASE 88 U/L (45-117); AST/SGOT 14 U/L (15-37)
--- NOTE | 2017-03-14 09:25 | DIAGNOSTIC IMAGING REPORT ---
CHEST 2 VIEWS ROUTINE HISTORY: 76 years-old Male hypoxia acute hypoxia with shortness of breath COMPARISON: Chest radiograph 10/07/2016 TECHNIQUE: AP and lateral views of the chest FINDINGS: Cardiac silhouette is within normal limits. Atherosclerosis of the aorta. No pneumothorax, pleural effusion, focal airspace consolidation or overt pulmonary edema. Remote bilateral rib fractures redemonstrated. Right shoulder arthroplasty with heterotopic periarticular ossifications. Degenerative changes are seen about the left shoulder and spine. The bones appear osteopenic. Multilevel endplate degenerative changes of the spine. IMPRESSION: No acute cardiopulmonary process. The above report was generated using voice recognition software. It may contain grammatical, syntax or spelling errors. Electronically signed by: Baltazar Perez M.D. 03/14/2017 9:24 AM Dictated Date/Time: 03/14/2017 9:23 AM
[2017-03-14] MEDS ORDERED: ONDA4TAB46 PO (09:29)
[2017-03-14] MEDS ORDERED: ACET650S10 RE (09:29)
[2017-03-14] MEDS ORDERED: HALO5TAB PO (09:29)
[2017-03-14] MEDS ORDERED: CHOL4POW11 PO (09:29)
[2017-03-14] MEDS ORDERED: NICO1DIS9 TD (09:29)
[2017-03-14] MEDS ORDERED: MOMLX PO (09:29)
[2017-03-14] MEDS ORDERED: RIFA550T2 PO (09:29)
[2017-03-14] MEDS ORDERED: MISCCAP80 PO (09:29)
[2017-03-14] MEDS ORDERED: FRRS300 PO (09:29)
[2017-03-14] MEDS ORDERED: MEGE40TA13 PO (09:29)
[2017-03-14] MEDS ORDERED: SPIR25TA PO (09:29)
[2017-03-14] MEDS ORDERED: MGCUDL400 PO (09:29)
[2017-03-14] MEDS ORDERED: IPRASOL4 INH (09:29)
[2017-03-14] MEDS ORDERED: ACET-1311 PO (09:29)
[2017-03-14] MEDS ORDERED: FRS/40 PO (09:29)
[2017-03-14] MEDS ORDERED: FEXO3TAB PO (09:29)
[2017-03-14] MEDS ORDERED: SODIENE PR (09:29)
[2017-03-14] MEDS ORDERED: MELA1TAB5 PO (09:29)
[2017-03-14] MEDS ORDERED: TNR25 PO (09:29)
[2017-03-14] MEDS ORDERED: BISA10SU38 PR (09:29)
[2017-03-14] MEDS ORDERED: LCTL45 PO (09:29)
[2017-03-14] MEDS ORDERED: THIA100T11 PO (09:29)
[2017-03-14] MEDS ORDERED: FOLI1TAB7 PO (09:29)
[2017-03-14] MEDS ORDERED: SODIUM CHLORIDE 0.9% 1000ML 1,000 ML IV ONE (09:45)
[2017-03-14 12:32] VITALS: TEMP 36.5
[2017-03-14 14:07] VITALS: BP 103/69; PULSE 95; O2SAT 95
== END 2017-03-14 14:09 | disposition home or self-care (01) ==
LOC: EDBD 08:14 → C.EDA 08:15
DX: R53.1 Weakness (principal); F03.90 Unspecified dementia, unspecified severity, without behavioral disturbance, psychotic disturbance, mood disturbance, and anxiety; K74.60 Unspecified cirrhosis of liver; F17.200 Nicotine dependence, unspecified, uncomplicated; Z96.619 Presence of unspecified artificial shoulder joint; Z79.899 Other long term (current) drug therapy

== ENCOUNTER → 2017-03-18 | Outpatient (CLI) | payer BC ==
[~2017-03-18] MED LIST changes: +ACET-1311 PO; +ACET650S10 RE; -ASCO100061 PO; -ATEN-175 PO; +BISA10SU38 PR; -BNC/40 PO; +CHOL4POW11 PO; -ECON118C TOP; +FEXO3TAB PO; +FOLI1TAB7 PO; +FRRS300 PO; +FRS/40 PO; +HALO5TAB PO; -HYDR12.56 PO; +IPRASOL4 INH; +LCTL45 PO; -LOSA100T65 PO; -MAGN1TAB19 PEG; +MEGE40TA13 PO; +MELA1TAB5 PO; +MGCUDL400 PO; +MISCCAP80 PO; +MOMLX PO; -MULT-506 PO; +NICO1DIS9 TD; +ONDA4TAB46 PO; +RIFA550T2 PO; +SODIENE PR; +SPIR25TA PO; +THIA100T11 PO; +TNR25 PO; -TRMO180 TOP; -VTMEUNK PO
== END ==
LOC: C.LABUPHEI 14:36
PROVIDERS: ATTEND Nurse Practitioner Family
DX: R82.90 Unspecified abnormal findings in urine (principal)

== ENCOUNTER → 2017-03-18 | Outpatient (CLI) | payer BC ==
[2017-03-18 09:17] LABS: BASO % 0.2 %; BASO ABS # 0.02 K/uL (0-0.2); COMPLETE YES; EOS % 0.6 %; HEMATOCRIT 35.9 % (42-52); IG% 0.2 %; LYMPH % 27.8 %; LYMPH ABS # 2.53 K/uL (1.2-3.4); MEAN CELL VOLUME 88.9 fL (80-100); MEAN CORPUSCULAR HEMOGLOBIN 29.7 pg (25-34); MEAN CORPUSCULAR HGB CONC 33.4 g/dl (32-36); MEAN PLATELET VOLUME 10.2 fL (7.4-10.4); MONO % 10.5 %; NEUT % 60.7 %; PLATELET COUNT 205 K/uL (130-400); RED BLOOD COUNT 4.04 M/uL (4.7-6.1); WHITE BLOOD COUNT 9.09 K/uL (4.8-10.8)
[2017-03-18 09:44] LABS: ALT/SGPT 11 U/L (12-78); AST/SGOT 12 U/L (15-37); BLOOD UREA NITROGEN 21 mg/dl (7-18); BUN/CREATININE RATIO 26.8 (10-20); CALCIUM 8.7 mg/dl (8.5-10.1); CARBON DIOXIDE 19 mmol/L (21-32); CHLORIDE 108 mmol/L (98-107); CREATININE 0.77 mg/dl (0.60-1.40); GLUCOSE 70 mg/dl (70-99); POTASSIUM 3.7 mmol/L (3.5-5.1); SODIUM 135 mmol/L (136-145)
[2017-03-18 09:46] LABS: ALB/GLOB RATIO 0.6 (0.9-2); ALKALINE PHOSPHATASE 69 U/L (45-117)
== END ==
LOC: C.LABUPHEI 09:06
PROVIDERS: ATTEND Nurse Practitioner Family
DX: N18.3 Chronic kidney disease, stage 3 (moderate) (principal); I12.9 Hypertensive chronic kidney disease with stage 1 through stage 4 chronic kidney disease, or unspecified chronic kidney disease; K74.60 Unspecified cirrhosis of liver; E78.5 Hyperlipidemia, unspecified

== ENCOUNTER → 2017-04-22 | Outpatient (CLI) | payer BC ==
[~2017-04-22] MED LIST changes: -FOLI1TAB7 PO; +FOLI1TAB8 PO
== END ==
LOC: C.LABUPHEI 07:58
PROVIDERS: ATTEND Nurse Practitioner Family
DX: F10.10 Alcohol abuse, uncomplicated (principal)

== ENCOUNTER → 2017-07-11 | Outpatient (CLI) | payer BC ==
[2017-07-11 06:48] LABS: BASO % 0.3 %; BASO ABS # 0.03 K/uL (0-0.2); EOS % 2.1 %; EOS ABS # 0.19 K/uL (0-0.5); HEMATOCRIT 31.2 % (42-52); HEMOGLOBIN 10.3 g/dL (14.0-18.0); IG# 0.05 K/uL (0.00-0.02); LYMPH % 23.8 %; MEAN CELL VOLUME 89.4 fL (80-100); MEAN CORPUSCULAR HEMOGLOBIN 29.5 pg (25-34); MEAN PLATELET VOLUME 9.1 fL (7.4-10.4); MONO % 8.4 %; MONO ABS # 0.78 K/uL (0.11-0.59); NEUT % 64.9 %; PLATELET COUNT 278 K/uL (130-400); RED CELL DISTRIBUTION WIDTH CV 14.9 % (11.5-14.5); RED CELL DISTRIBUTION WIDTH SD 48.6 fL (36.4-46.3); WHITE BLOOD COUNT 9.25 K/uL (4.8-10.8)
[2017-07-11 06:58] LABS: ALBUMIN 2.1 gm/dl (3.4-5.0); ALT/SGPT 10 U/L (12-78); BLOOD UREA NITROGEN 17 mg/dl (7-18); CALCIUM 9.1 mg/dl (8.5-10.1); CARBON DIOXIDE 25 mmol/L (21-32); CREATININE 0.63 mg/dl (0.60-1.40); GLUCOSE 96 mg/dl (70-99); POTASSIUM 4.2 mmol/L (3.5-5.1); SODIUM 136 mmol/L (136-145)
[2017-07-11 07:00] LABS: ALKALINE PHOSPHATASE 60 U/L (45-117); AST/SGOT 9 U/L (15-37); TOTAL PROTEIN 6.5 gm/dl (6.4-8.2)
--- NOTE | 2017-07-22 14:43 | CODING QUERY MEDICAL NECESSITY ---
SUPPORTING DIAGNOSIS NEEDED A supporting diagnosis is required for the test/procedure performed on this patient in order for us to be reimbursed by the patient's insurance. Please provide a supporting diagnosis for the following test/procedure listed below next to the test name along with your signature. *If there is no additional diagnosis for this patient that would support the following test/procedure please document that below next to the test/procedure. Test(s)/Procedure(s) that require a supporting diagnosis: DOS: 07/11/17 * CMP DIAGNOSIS: * CBC W/ AUTO DIFF DIAGNOSIS: Provider Signature: Date: Thank you Pallavi Miranda [employer] Information Management Once completed, please kindly fax back to [phone] For questions please call [phone]
== END ==
LOC: C.LABUPHEI 10:08
PROVIDERS: ATTEND Nurse Practitioner Family
DX: K74.60 Unspecified cirrhosis of liver (principal); D50.9 Iron deficiency anemia, unspecified

== ENCOUNTER → 2017-07-14 | Outpatient (CLI) | payer BC ==
[2017-07-14 10:06] LABS: URIC ACID 7.2 mg/dl (2.6-7.2)
--- NOTE | 2017-07-28 17:51 | CODING QUERY NO DIAGNOSIS ---
TREATMENT RENDERED WITHOUT A DIAGNOSIS 42 To promote full compliance with coding requirements relating to patient care, physician participation is requested in all cases of metal trades instructor uncertainty. Please assist us with providing a diagnosis/symptom for the test(s) below: A diagnosis/symptom was not documented on your Order. A valid diagnosis/symptom is required to bill all insurances. Please remember that we are unable to code a diagnosis of rule out, probable, possible, questionable, or suspected. DOS 07/14/17 Tests that require a diagnosis: * CRP DIAGNOSIS: * ESR DIAGNOSIS: * URIC ACID LEVEL DIAGNOSIS: *ON YOUR ORDER YOU HAVE DX CODE R83.30, THIS IS AN INVALID CODE, PLEASE ADD CORRECT DX CODE Provider Signature: Date: Thank you Morena Carnes [facility] Information Management Once completed, please kindly fax back to [phone] For questions please call [phone]
== END ==
LOC: C.LABUPHEI 09:00
PROVIDERS: ATTEND Nurse Practitioner Family
DX: K74.60 Unspecified cirrhosis of liver (principal); M1A.4790 Other secondary chronic gout, unspecified ankle and foot, without tophus (tophi)

== ENCOUNTER → 2017-07-23 | Outpatient (CLI) | payer BC ==
[2017-07-23 10:14] LABS: ALBUMIN 2.1 gm/dl (3.4-5.0); TOTAL PROTEIN 6.2 gm/dl (6.4-8.2); URIC ACID 6.2 mg/dl (2.6-7.2)
== END ==
LOC: C.LABUPHEI 08:24
PROVIDERS: ATTEND Nurse Practitioner Family
DX: K74.60 Unspecified cirrhosis of liver (principal); M1A.4790 Other secondary chronic gout, unspecified ankle and foot, without tophus (tophi)

== ENCOUNTER → 2017-07-29 | Outpatient (CLI) | payer BC | LOC: C.LABUPHEI 08:00 | PROVIDERS: ATTEND Nurse Practitioner Family | DX: N40.0 Benign prostatic hyperplasia without lower urinary tract symptoms (principal) ==

== ENCOUNTER → 2017-07-30 | Outpatient (CLI) | payer BC | LOC: C.LABUPHEI 09:45 | PROVIDERS: ATTEND Nurse Practitioner Family | DX: F10.10 Alcohol abuse, uncomplicated (principal) ==

== ENCOUNTER → 2017-08-25 | Outpatient (CLI) | payer BC ==
[2017-08-25 09:26] LABS: BASO % 0.1 %; BASO ABS # 0.01 K/uL (0-0.2); EOS % 0.5 %; EOS ABS # 0.04 K/uL (0-0.5); HEMATOCRIT 34.1 % (42-52); IG# 0.04 K/uL (0.00-0.02); LYMPH ABS # 3.19 K/uL (1.2-3.4); MEAN CORPUSCULAR HGB CONC 32.3 g/dl (32-36); MEAN PLATELET VOLUME 9.7 fL (7.4-10.4); MONO % 8.5 %; MONO ABS # 0.75 K/uL (0.11-0.59); NEUT % 54.4 %; NEUT ABS # 4.82 K/uL (1.4-6.5); PLATELET COUNT 209 K/uL (130-400); RED CELL DISTRIBUTION WIDTH CV 16.4 % (11.5-14.5); RED CELL DISTRIBUTION WIDTH SD 53.5 fL (36.4-46.3); WHITE BLOOD COUNT 8.85 K/uL (4.8-10.8)
[2017-08-25 11:02] LABS: BLOOD UREA NITROGEN 27 mg/dl (7-18); CREATININE 0.76 mg/dl (0.60-1.40); GLUCOSE 79 mg/dl (70-99); POTASSIUM 3.9 mmol/L (3.5-5.1); SODIUM 140 mmol/L (136-145)
[2017-08-25 11:03] LABS: ALBUMIN 2.4 gm/dl (3.4-5.0); CALCIUM 8.7 mg/dl (8.5-10.1); CARBON DIOXIDE 26 mmol/L (21-32)
[2017-08-25 11:04] LABS: ALKALINE PHOSPHATASE 57 U/L (45-117); ALT/SGPT 26 U/L (12-78); AST/SGOT 20 U/L (15-37)
== END | disposition home or self-care (01) ==
LOC: C.LABUPHEI 08:56
PROVIDERS: ATTEND Nurse Practitioner Family
DX: K74.60 Unspecified cirrhosis of liver (principal)

== ENCOUNTER → 2017-09-01 | Outpatient (CLI) | payer BC | LOC: C.LABUPHEI 09:14 | PROVIDERS: ATTEND Nurse Practitioner Family | DX: K74.60 Unspecified cirrhosis of liver (principal) ==

== ENCOUNTER → 2017-11-03 | Outpatient (CLI) | payer BC ==
[~2017-11-03] MED LIST changes: +IPRA-64 INH; -IPRASOL4 INH; +THIA100T10 PO; -THIA100T11 PO
== END | disposition home or self-care (01) ==
LOC: C.LABUPHEI 09:41
PROVIDERS: ATTEND Nurse Practitioner Family
DX: I10 Essential (primary) hypertension (principal)

== ENCOUNTER 2020-03-06 11:55 | Inpatient (IN) ==
--- NOTE | 2020-03-06 12:40 | Emergency Department Note ---
Impression & Plan AMS (altered mental status), Acute hypernatremia, COVID-19, Acute UTI ED Provider Note Provider: Demetrius Barrera MD DATE OF SERVICE:03/06/2020 CHIEF COMPLAINT: Change in mental status, decreased intake HISTORY OF PRESENT ILLNESS: Patient is a 79-year-old gentleman history of dementia/TBI as well as liver cirrhosis on rifaximin/lactulose presenting today from [facility] via ambulance for change in mental status. Patient tested positive on the of this month for coronavirus 19 there and did receive a course of dexamethasone per records at his nursing facility. Patient evidently had outpatient blood work yesterday showing severe hypernatremia with a sodium of 158. He was given 2 L of half-normal saline overnight but had no change of his mental status and he is more confused according to EMS report. He was brought here for further care. EMS states he was in the 70s on room air and they did provide him with albuterol and oxygen in route. Upon arrival patient was 89% on room air. Patient withdraws to any stimulus but is nonverbal and does not answer additional questions. There is no reported history of trauma. Patient comes with records from the facility and paperwork indicating that he is full code. REVIEW OF SYSTEMS: Limited secondary to his mental status/nonverbal status. PAST MEDICAL HISTORY: As noted above MEDICATIONS: Reviewed the paperwork from the facility for his medications SOCIAL HISTORY: Resides at [facility]. Additional limited secondary to his mental status. PHYSICAL EXAM: GENERAL: Sitting in bed eyes open staring ahead not responsive to verbal but responds to touch or painful stimuli. Head: normocephalic and atraumatic EYES: No injection, discharge or icterus. PERRL NECK: Trachea midline. Supple. ENT: Mucous membranes pink but dry LUNGS: Airway patent. No retractions. HEART: Regular rate and rhythm. No chest wall tenderness ABDOMEN: Soft and non-tender, without guarding or rebound. SKIN: Acyanotic, warm, dry, without rashes EXTREMITIES: Without swelling, tenderness or deformity NEUROLOGICAL: Withdraws to pain in all 4 extremities and does try to move away anytime staff touch him for vitals or blood work. No appreciable facial droop. Patient is nonverbal and will not answer questions. No response to verbal stimuli. EK bpm sinus bradycardia. No PVC. Left axis with no acute ST segment elevation noted with some baseline artifact. CONTINUOUS CARDIAC MONITORING: was ordered and showed a heart rate of 57 bpm in sinus bradycardia Patient's laboratory studies and imaging reviewed. Differential includes Infection, dehydration, metabolic abnormality, hypo/hyperglycemia, electrolyte disturbance, anemia, hypoxia, cardiac sources, intracerebral event, toxicologic, neurologic, as well as other pathologies. IMPRESSION/MEDICAL DECISION MAKING: Patient presents known coronavirus positive from his facility decreased intake and reported recent hyponatremia. Recent KAROLYN on the blood work from yesterday as well. Attempted contraction prior to arrival with 2 L of half-normal saline. Repeat blood work was sent here. Patient is nonverbal poorly a change from his baseline. There is no significant trauma. Patient does not appear meningitic. Basic labs were sent. Concern for possible dehydration as causing hyponatremia and changes in mental status from the underlying coronavirus infection. Is requiring oxygen at this point. Patient did receive looks approximate 6-day co urse of dexamethasone given his clinical worsening and hypoxia still given another IV dose of dexamethasone here. Holding off IV fluids initially until I have repeat electrolytes as I am not sure how much 2 L of half-normal saline will change some of his electrolytes over the past 24 hours. Blood work returned without significant leukocytosis or anemia. VBG without significant acidosis or hypercarbia. Hypernatremia at 160, actually worsened from yesterday. Renal function KAROLYN 1.58 not significant change from yesterday. Troponin is undetectable. No evidence of pancreatitis or hepatitis based on labs. Ammonia not elevated. Nitrate positive but some epithelial cells noted and unsure if it is a contaminated urine sample but will cover empirically given his illness/change in mental status with ceftriaxone. D-dimer is elevated at 1020 but given his KAROLYN/borderline renal function will hold off on CT scan for PE at this time. Suspicion for his mild hypoxia being from his underlying COPD and coronavirus is high rather than PE. Started on D5 water for hydration given the hypernatremia. Discussed with both of the patient's sons via phone as well as the hospitalist. DIAGNOSIS: Hyponatremia, COVID-19, altered mental status, hypoxia, acute UTI, dehydration DISPOSITION: Hospitalist will evaluate for admission. Patient's son Luis states he is full treatment and wishes to be contacted with updates or questions at any time via his cell phone. Critical Care I have personally spent 33 minutes of critical care time in the direct management of this patient. This includes bedside care, interpretation of diagnostic studies, and testing, discussion with consultants, patient, and family members (sons), and other required patient management activities. These 33 minutes is in excess of all separately billable procedures. Past Med/Surg History Social History Smoking Status: Unknown if ever smoked Allergies Allergies Allergy/AdvReac Type Severity Reaction Status Date / Time adhesive AdvReac Unknown Unknown Unverified 03/06/20 13:19 adhesive tape AdvReac Unknown Unknown Unverified 03/06/20 13:19 Home Meds Home Medications Medication Instructions Recorded Confirmed Lactobacillus acidophilus 1,000 mmu cells PO QAM 03/06/20 03/06/20 [Probiotic Acidophilus] allopurinol 100 mg PO QAM 03/06/20 03/06/20 ascorbic acid (vitamin C) 500 mg PO QAM 03/06/20 03/06/20 atenolol 25 mg PO QAM 03/06/20 03/06/20 atorvastatin 20 mg PO HS 03/06/20 03/06/20 azithromycin 250 mg PO BID 03/06/20 03/06/20 cholecalciferol (vitamin D3) 125 mcg PO QAM 03/06/20 03/06/20 [Vitamin D3] cholestyramine (with sugar) 1 ea PO BID 03/06/20 03/06/20 dexamethasone 6 mg PO HS 03/06/20 03/06/20 ferrous sulfate 220 mg PO QAM 03/06/20 03/06/20 folic acid 0.5 mg PO QAM 03/06/20 03/06/20 furosemide 20 mg PO QAM 03/06/20 03/06/20 haloperidol 0.5 mg PO DAILY@1500 03/06/20 03/06/20 haloperidol 1 mg PO TID 03/06/20 03/06/20 ipratropium-albuterol 3 ml INHALATION Q6H PRN 03/06/20 03/06/20 lactulose 45 ml PO QAM 03/06/20 03/06/20 loratadine 10 mg PO QAM 03/06/20 03/06/20 multivitamin with minerals 1 tab PO QAM 03/06/20 03/06/20 rifaximin [Xifaxan] 550 mg PO BID 03/06/20 03/06/20 spironolactone 25 mg PO QAM 03/06/20 03/06/20 thiamine HCl (vitamin B1) 100 mg PO QAM 03/06/20 03/06/20 zinc 50 mg PO BID 03/06/20 03/06/20 Results & Data (ED) Vital Signs Vital Signs - 24 hr 03/06/20 12:05 03/06/20 12:18 03/06/20 12:43 Temperature Temperature Source Oral Pulse Rate 55 L Pulse Rate [Apical] 56 L Respiratory Rate 18 18 20 Blood Pressure 110/82 Blood Pressure [Right Arm] Blood Pressure Mean 91 Blood Pressure Mean [Right Arm] Pulse Oximetry 89 L 95 94 Oxygen Delivery Method Room Air Nasal Cannula Nasal Cannula Oxygen Flow Rate 4 4 Sepsis Recent Fever Within 48 Hours No Sepsis New/Unexplained Change in Mental Status Yes Sepsis Action Taken by Nursing No Action Required 03/06/20 13:32 03/06/20 14:00 03/06/20 14:01 Temperature 37 C Temperature Source Oral Pulse Rate 55 L 57 L Pulse Rate [Apical] Respiratory Rate 17 16 Blood Pressure 116/64 117/74 Blood Pressure [Right Arm] Blood Pressure Mean 83 83 Blood Pressure Mean [Right Arm] Pulse Oximetry 100 94 Oxygen Delivery Method Nasal Cannula Nasal Cannula Oxygen Flow Rate 4 4 Sepsis Recent Fever Within 48 Hours Sepsis New/Unexplained Change in Mental Status Sepsis Action Taken by Nursing 03/06/20 15:00 03/06/20 15:30 03/06/20 15:52 Temperature Temperature Source Pulse Rate 52 L 53 L Pulse Rate [Apical] 56 L Respiratory Rate 16 18 17 Blood Pressure 140/78 Blood Pressure [Right Arm] 127/95 Blood Pressure Mean 90 Blood Pressure Mean [Right Arm] 105 Pulse Oximetry 96 95 93 Oxygen Delivery Method Nasal Cannula Nasal Cannula Nasal Cannula Oxygen Flow Rate 4 4 4 Sepsis Recent Fever Within 48 Hours Sepsis New/Unexplained Change in Mental Status Sepsis Action Taken by Nursing 03/06/20 15:55 Temperature 36.6 C Temperature Source Oral Pulse Rate Pulse Rate [Apical] Respiratory Rate Blood Pressure Blood Pressure [Right Arm] Blood Pressure Mean Blood Pressure Mean [Right Arm] Pulse Oximetry Oxygen Delivery Method Oxygen Flow Rate Sepsis Recent Fever Within 48 Hours Sepsis New/Unexplained Change in Mental Status Sepsis Action Taken by Nursing Laboratory Data Result diagrams: 03/06/20 12:24 03/06/20 12:24 Lab Results 03/06/20 03/06/20 03/06/20 Range/Units 12:24 12:24 12:24 WBC 9.35 (4.8-10.8) K/uL RBC 5.26 (4.7-6.1) M/uL Hgb 16.3 (14.0-18.0) g/dL Hct 52.0 (42-52) % MCV 98.9 (80-100) fL MCH 31.0 (25-34) pg MCHC 31.3 L (32-36) g/dL RDW Std Deviation 54.8 H (36.4-46.3) fL RDW Coeff of Mayo 15.2 H (11.5-14.5) % Plt Count 257 (130-400) K/uL MPV 11.2 H (7.4-10.4) fL Immature Gran % (Auto) 1.0 % Neut % (Auto) 78.4 % Lymph % (Auto) 11.2 % [place] % (Auto) 8.9 % Eos % (Auto) 0.4 % Baso % (Auto) 0.1 % Neut # (Auto) 7.33 H (1.4-6.5) K/uL Lymph # (Auto) 1.05 L (1.2-3.4) K/uL [place] # (Auto) 0.83 H (0.11-0.59) K/uL Eos # (Auto) 0.04 (0-0.5) K/uL Baso # (Auto) 0.01 (0-0.2) K/uL Immature Gran # (Auto) 0.09 H (0.00-0.02) K/uL PT 12.7 H (9.0-12.0) Seconds INR 1.2 H (0.9-1.1) D-Dimer 1020 H* (0-500) ug/L FEU VBG pH (7.36-7.41) VBG pCO2 (38-50) mmHg VBG pO2 mmHg VBG HCO3 mmol/L VBG O2 Saturation % VBG Base Excess mEq/L Barometric Pressure mm/Hg Sodium 160 H* (136-145) mmol/L Potassium 4.2 (3.5-5.1) mmol/L Chloride 129 H (98-107) mmol/L Carbon Dioxide 26 (21-32) mmol/L Anion Gap 5.0 (3-11) BUN 61 H (7-18) mg/dl Creatinine 1.58 H (0.6-1.4) mg/dl Est Cr Clr Drug Dosing Not Reportable Est GFR ( Amer) 48.2 Est GFR (Non-Af Amer) 41.6 BUN/Creatinine Ratio 38.6 H (10-20) Glucose 91 (70-99) mg/dl Lactate (0.4-2.0) mmol/L Calcium 9.5 (8.5-10.1) mg/dl Magnesium 3.4 H (1.8-2.4) mg/dl Total Bilirubin 0.9 (0.2-1) mg/dl AST 14 L (15-37) U/L ALT 18 (12-78) U/L Alkaline Phosphatase 104 (45-117) U/L Ammonia (11-32) umol/L Troponin I < 0.015 (0-0.045) ng/ml Total Protein 8.0 (6.4-8.2) gm/dl Albumin 3.0 L (3.4-5.0) gm/dl Globulin 5.0 H (2.5-4.0) gm/dl Albumin/Globulin Ratio 0.6 L (0.9-2) Lipase 109 (73-393) U/L TSH 3.300 (0.300-4.500) uIu/ml Urine Color Urine Appearance (Clear) Urine pH (4.5-7.5) Ur Specific [place] (1.000-1.030) Urine Protein (Negative) Urine Glucose (UA) (Negative) Urine Ketones (Negative) Urine Blood (Negative) Urine Nitrite (Negative) Urine Bilirubin (Negative) Urine Urobilinogen (Negative) Ur Leukocyte Esterase (Negative) Urine WBC (Auto) (0-5) /hpf Urine RBC (Auto) (0-4) /hpf U Hyaline Cast (Auto) (0-5) /lpf U Epithel Cells (Auto) (0-5) /lpf Urine Bacteria (Auto) (Negative) 03/06/20 03/06/20 03/06/20 Range/Units 12:34 12:34 12:34 WBC (4.8-10.8) K/uL RBC (4.7-6.1) M/uL Hgb (14.0-18.0) g/dL Hct (42-52) % MCV (80-100) fL MCH (25-34) pg MCHC (32-36) g/dL RDW Std Deviation (36.4-46.3) fL RDW Coeff of Mayo (11.5-14.5) % Plt Count (130-400) K/uL MPV (7.4-10.4) fL Immature Gran % (Auto) % Neut % (Auto) % Lymph % (Auto) % [place] % (Auto) % Eos % (Auto) % Baso % (Auto) % Neut # (Auto) (1.4-6.5) K/uL Lymph # (Auto) (1.2-3.4) K/uL [place] # (Auto) (0.11-0.59) K/uL Eos # (Auto) (0-0.5) K/uL Baso # (Auto) (0-0.2) K/uL Immature Gran # (Auto) (0.00-0.02) K/uL PT (9.0-12.0) Seconds INR (0.9-1.1) D-Dimer (0-500) ug/L FEU VBG pH 7.35 L (7.36-7.41) VBG pCO2 42 (38-50) mmHg VBG pO2 38 mmHg VBG HCO3 23 mmol/L VBG O2 Saturation 66.0 % VBG Base Excess -2.7 mEq/L Barometric Pressure 742.7 mm/Hg Sodium (136-145) mmol/L Potassium (3.5-5.1) mmol/L Chloride (98-107) mmol/L Carbon Dioxide (21-32) mmol/L Anion Gap (3-11) BUN (7-18) mg/dl Creatinine (0.6-1.4) mg/dl Est Cr Clr Drug Dosing Est GFR ( Amer) Est GFR (Non-Af Amer) BUN/Creatinine Ratio (10-20) Glucose (70-99) mg/dl Lactate 1.7 (0.4-2.0) mmol/L Calcium (8.5-10.1) mg/dl Magnesium (1.8-2.4) mg/dl Total Bilirubin (0.2-1) mg/dl AST (15-37) U/L ALT (12-78) U/L Alkaline Phosphatase (45-117) U/L Ammonia 17.7 (11-32) umol/L Troponin I (0-0.045) ng/ml Total Protein (6.4-8.2) gm/dl Albumin (3.4-5.0) gm/dl Globulin (2.5-4.0) gm/dl Albumin/Globulin Ratio (0.9-2) Lipase (73-393) U/L TSH (0.300-4.500) uIu/ml Urine Color Urine Appearance (Clear) Urine pH (4.5-7.5) Ur Specific [place] (1.000-1.030) Urine Protein (Negative) Urine Glucose (UA) (Negative) Urine Ketones (Negative) Urine Blood (Negative) Urine Nitrite (Negative) Urine Bilirubin (Negative) Urine Urobilinogen (Negative) Ur Leukocyte Esterase (Negative) Urine WBC (Auto) (0-5) /hpf Urine RBC (Auto) (0-4) /hpf U Hyaline Cast (Auto) (0-5) /lpf U Epithel Cells (Auto) (0-5) /lpf Urine Bacteria (Auto) (Negative) 03/06/20 Range/Units 12:37 WBC (4.8-10.8) K/uL RBC (4.7-6.1) M/uL Hgb (14.0-18.0) g/dL Hct (42-52) % MCV (80-100) fL MCH (25-34) pg MCHC (32-36) g/dL RDW Std Deviation (36.4-46.3) fL RDW Coeff of Mayo (11.5-14.5) % Plt Count (130-400) K/uL MPV (7.4-10.4) fL Immature Gran % (Auto) % Neut % (Auto) % Lymph % (Auto) % [place] % (Auto) % Eos % (Auto) % Baso % (Auto) % Neut # (Auto) (1.4-6.5) K/uL Lymph # (Auto) (1.2-3.4) K/uL [place] # (Auto) (0.11-0.59) K/uL Eos # (Auto) (0-0.5) K/uL Baso # (Auto) (0-0.2) K/uL Immature Gran # (Auto) (0.00-0.02) K/uL PT (9.0-12.0) Seconds INR (0.9-1.1) D-Dimer (0-500) ug/L FEU VBG pH (7.36-7.41) VBG pCO2 (38-50) mmHg VBG pO2 mmHg VBG HCO3 mmol/L VBG O2 Saturation % VBG Base Excess mEq/L Barometric Pressure mm/Hg Sodium (136-145) mmol/L Potassium (3.5-5.1) mmol/L Chloride (98-107) mmol/L Carbon Dioxide (21-32) mmol/L Anion Gap (3-11) BUN (7-18) mg/dl Creatinine (0.6-1.4) mg/dl Est Cr Clr Drug Dosing Est GFR ( Amer) Est GFR (Non-Af Amer) BUN/Creatinine Ratio (10-20) Glucose (70-99) mg/dl Lactate (0.4-2.0) mmol/L Calcium (8.5-10.1) mg/dl Magnesium (1.8-2.4) mg/dl Total Bilirubin (0.2-1) mg/dl AST (15-37) U/L ALT (12-78) U/L Alkaline Phosphatase (45-117) U/L Ammonia (11-32) umol/L Troponin I (0-0.045) ng/ml Total Protein (6.4-8.2) gm/dl Albumin (3.4-5.0) gm/dl Globulin (2.5-4.0) gm/dl Albumin/Globulin Ratio (0.9-2) Lipase (73-393) U/L TSH (0.300-4.500) uIu/ml Urine Color Yellow Urine Appearance Clear (Clear) Urine pH 5.0 (4.5-7.5) Ur Specific [place] 1.023 (1.000-1.030) Urine Protein Negative (Negative) Urine Glucose (UA) Negative (Negative) Urine Ketones Negative (Negative) Urine Blood Negative (Negative) Urine Nitrite Positive A (Negative) Urine Bilirubin Negative (Negative) Urine Urobilinogen Negative (Negative) Ur Leukocyte Esterase Trace H (Negative) Urine WBC (Auto) 5-10 H (0-5) /hpf Urine RBC (Auto) 0-4 (0-4) /hpf U Hyaline Cast (Auto) 1-5 (0-5) /lpf U Epithel Cells (Auto) 10-20 H (0-5) /lpf Urine Bacteria (Auto) 4+ H (Negative) Administered Medications Dextrose (D5w) 1,000 mls @ 220 mls/hr IV [id number] DELFIN Stop: 04/05/20 13:29 Last Admin: 03/06/20 14:05 Dose: 220 mls/hr Documented by: [id number] Discontinued Medications Dexamethasone (Dexamethasone Sod Inj 10 Mg/Ml Vial) 6 mg IV NOW ONE Stop: 03/06/20 12:54 Last Admin: 03/06/20 13:29 Dose: 6 mg Documented by: [id number] Ceftriaxone Sodium (Rocephin) 2,000 mg in 70 mls @ 140 mls/hr IV NOW STA Stop: 03/06/20 14:14 Last Infusion: 03/06/20 14:35 Dose: 0 mls/hr Documented by: [id number] Admin: 03/06/20 14:05 Dose: 140 mls/hr Documented by: [id number] Discharge Plan Visit Data Chief Complaint: Illness ED Provider: Demetrius Barrera Discharge Problem: AMS (altered mental status), Acute hypernatremia, COVID-19, Acute UTI Patient Disposition: Admitted As Inpatient Forms Stand Alone Forms: My [facility] Prescriptions Prescriptions: No Action atorvastatin 20 mg tablet 20 mg PO HS RF: 0 atenolol 25 mg tablet 25 mg PO QAM RF: 0 haloperidol 1 mg tablet 0.5 mg PO DAILY@1500 RF: 0 allopurinol 100 mg tablet 100 mg PO QAM RF: 0 dexamethasone 4 mg tablet 6 mg PO HS RF: 0 folic acid 1 mg tablet 0.5 mg PO QAM RF: 0 ferrous sulfate 220 mg (44 mg iron)/5 mL Solution 220 mg PO QAM RF: 0 thiamine HCl (vitamin B1) 100 mg Tablet 100 mg PO QAM RF: 0 spironolactone 25 mg tablet 25 mg PO QAM RF: 0 ascorbic acid (vitamin C) 500 mg Tablet 500 mg PO QAM RF: 0 furosemide 20 mg tablet 20 mg PO QAM RF: 0 multivitamin with minerals Tablet 1 tab PO QAM RF: 0 loratadine 10 mg Tablet 10 mg PO QAM RF: 0 cholestyramine (with sugar) 4 gram powder in packet 1 ea PO BID RF: 0 lactulose 10 gram/15 mL solution 45 ml PO QAM RF: 0 cholecalciferol (vitamin D3) [Vitamin D3] 125 mcg (5,000 unit) Tablet 125 mcg PO QAM RF: 0 Probiotic Acidophilus 1.5 mg (250 million cell) Capsule 1,000 mmu cells PO QAM RF: 0 ipratropium-albuterol 0.5 mg-3 mg(2.5 mg base)/3 mL solution for nebulization 3 ml INHALATION Q6H PRN (Reason: cough/congestion) RF: 0 azithromycin 250 mg tablet 250 mg PO BID RF: 0 haloperidol 1 mg tablet 1 mg PO TID RF: 0 zinc 50 mg Tablet 50 mg PO BID RF: 0 Xifaxan 550 mg tablet 550 mg PO BID RF: 0 Referrals Referrals: Magali Bobo [Primary Care Provider] -
[2020-03-06] MEDS ORDERED: DEXAMETHASONE SOD INJ 10 MG/ML VIAL IV ONE (12:53)
[2020-03-06 12:54] LABS: Base Excess VBG -2.7 mEq/L; pH VBG 7.35 (7.36-7.41)
[2020-03-06 12:56] LABS: Basophils # (auto) 0.01 K/uL (0-0.2); Basophils % (auto) 0.1 %; Eosinophils # (auto) 0.04 K/uL (0-0.5); Eosinophils % (auto) 0.4 %; Hemoglobin 16.3 g/dL (14.0-18.0); Immature Granulocytes # (auto) 0.09 K/uL (0.00-0.02); Lymphocytes # (auto) 1.05 K/uL (1.2-3.4); Lymphocytes % (auto) 11.2 %; Mean Corpuscular Hgb Conc 31.3 g/dL (32-36); Mean Corpuscular Volume 98.9 fL (80-100); Mean Platelet Volume 11.2 fL (7.4-10.4); Monocytes # (auto) 0.83 K/uL (0.11-0.59); Monocytes % (auto) 8.9 %; Neutrophils # (auto) 7.33 K/uL (1.4-6.5); Neutrophils % (auto) 78.4 %; Platelet Count 257 K/uL (130-400); RDW Coefficient of Variation 15.2 % (11.5-14.5); RDW Standard Deviation 54.8 fL (36.4-46.3); Red Blood Count 5.26 M/uL (4.7-6.1); White Blood Count 9.35 K/uL (4.8-10.8)
[2020-03-06 13:05] LABS: Appearance Urine Clear (Clear); Bacteria Urine Automated 4+ (Negative); Bilirubin Urine Negative (Negative); Blood Urine Negative (Negative); Color Urine Yellow; Glucose Urine UA Negative (Negative); Ketones Urine Negative (Negative); Leukocyte Esterase Urine Trace (Negative); Nitrite Urine Positive (Negative); Protein Urine Negative (Negative); RBC Urine Automated 0-4 /hpf (0-4); Specific Gravity Urine 1.023 (1.000-1.030); Urobilinogen Urine Negative (Negative)
[2020-03-06 13:11] LABS: INR 1.2 (0.9-1.1); Prothrombin Time 12.7 Seconds (9.0-12.0)
[2020-03-06 13:20] LABS: D Dimer 1020 ug/L FEU (0-500)
--- NOTE | 2020-03-06 13:22 | CT Scan Report ---
CT head/brain wo con CLINICAL HISTORY: 79 years-old Male with ams. Acutely altered mental TECHNIQUE: Multiple axial CT images of the head were obtained without contrast. A dose lowering tech nique was utilized adhering to the principles of ALARA. CT DOSE: 1235.91 mGycm COMPARISON: Head CT 10/07/2016. FINDINGS: No acute intracranial hemorrhage, midline shift, intracranial mass, hydrocephalus, territorial ischem ia or abnormal extra-axial collection. Motion degraded exam. A portion of the study was then repeated . Mild age-related involutional changes. Cerebral vascular calcifications. The calvarium is intact. The paranasal sinuses, mastoid air cells, and middle ear cavities are clear . IMPRESSION: No acute intracranial abnormality. ACT 112: Negative or not required by law. The above report was generated using voice recognition software. It may contain grammatical, syntax o r spelling errors. Electronically signed by: Baltazar Perez M.D. 03/06/2020 1:20 PM
[2020-03-06 13:27] LABS: Alanine Aminotransferase 18 U/L (12-78); Albumin Globulin Ratio 0.6 (0.9-2); Alkaline Phosphatase 104 U/L (45-117); Aspartate Aminotransferase 14 U/L (15-37); BUN Creatinine Ratio 38.6 (10-20); Bilirubin,Total 0.9 mg/dl (0.2-1); Blood Urea Nitrogen 61 mg/dl (7-18); Calcium 9.5 mg/dl (8.5-10.1); Carbon Dioxide 26 mmol/L (21-32); Chloride 129 mmol/L (98-107); Est GFR (African American) 48.2; Est GFR (Non-African American) 41.6; Glucose 91 mg/dl (70-99); Lipase 109 U/L (73-393); Magnesium 3.4 mg/dl (1.8-2.4); Potassium 4.2 mmol/L (3.5-5.1); Sodium 160 mmol/L (136-145); Troponin I < 0.015 ng/ml (0-0.045)
[2020-03-06] MEDS ORDERED: cefTRIAXone SODIUM 2,000 MG/70 ML BAG IV STA (13:45)
--- NOTE | 2020-03-06 13:52 | History & Physical Report ---
Date of Service March 06, 2020 Assessment & Plan (1) Goals of care, counseling/discussion: Long discussion with his son Luis who has power of prosecuting attorney. Initially the patient was sent over as full code and wishing for all possible treatment. The patient is unable to take part in any meaningful conversation regarding goals of care. I discussed in detail with his son what this would involve including chest compressions, intubation and ventilation which are likely to cause distress for his father at the end of his life. I think these interventions will be of limited benefit if his father was to progress to needing intubation or having a cardiac arrest. His son is agreeable to DNR/DNI status now he is aware of what this would involve. Request all other interventions including attempt artificial nutrition if required to get him back to his previous baseline. He reports his father had a prior PEG tube after his traumatic brain injury and he did well with this. (2) Dehydration with hypernatremia: In setting of Lasix and spironolactone use. 2L 0.5NSS at [facility], [place] caused increase in Na from 158->160. Free water deficit 3.7 L, aim to replace over 48 hours. Maintenance 140ml/hr. Therefore D5W rate approx 220 ml/hr but can be adjusted with AM labs if correcting sufficiently. If becoming hypoxic or more short of breath will reduce rate. Discussed with son high risk of causing pulmonary edema +/- ascites. (3) Pneumonia due to COVID-19 virus: Unable to have remdesivir due to liver cirrhosis. Given > 7 days from initial symptoms and diagnosis I suspect little benefit and potential risk from convalescent plasma. Continue Decadron for total 10 day course (additional 3 days). (4) UTI (urinary tract infection): Unclear if asymptomatic/symptomatic is unable to get history from patient. Continue ceftriaxone 2 g IV daily Follow-up urine/blood culture (5) Altered mental state: Unclear how much is reversible but agree with son to treat hypernatremia and possible UTI and monitor for improvement in mental state. Ammonia level WNL. TSH WNL. Possible side effect of steroid use but benefit of completing course likely to outweigh risk. 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 Ammonia level WNL. Continue lactulose to aim for 2 bowel movements daily - will try to limit BM as ammonia normal and bigger issue is his dehydration. Oddly he appears to also have cholestyramine prescribed as needed for diarrhea which should be discontinued on discharge. Discontinue spironolactone and Lasix - monitor for ascites. (7) Dementia: Associated psychosis. Recently increased haloperidol to 1 mg 3 times daily at the beginning of this month. Given current unresponsiveness will discontinue further haloperidol for as needed dosing for delirium/agitation (8) Hypertension: Stop atenolol, spironolactone and lasix. (9) Iron deficiency anemia: Hemoglobin currently within normal limits likely due to hemoconcentration. Repeat CBC with a.m. labs (10) Paroxysmal atrial fibrillation: Telemetry for recurrence. Unclear history of this as not on anticoagulation. Currently in sinus rhythm. (11) Traumatic brain injury: Prior history of this (12) Chronic gout: Continue allopurinol 100mg PO QAM (13) BPH (benign prostatic hyperplasia): Unclear history of this as not on medication. Torres catheter - monitor for urinary retention on removal. (14) Bradycardia: Hold atenolol. (15) DVT prophylaxis: Lovenox 40mg SQ BID Admission and Anticipated Discharge Date Admission Date: 03/06/2020 History of Present Illness Chief Complaint: Altered mental state Primary Care Provider: Pavel Jarvis is a 79-year-old male with dementia and liver cirrhosis who presents from [facility] by ambulance due to altered mental status and hypoxia. Unable to get any history from patient as non-verbal and unable to communicate by other means. History was taken from [facility], [place] notes and from his son Luis who is power of prosecuting attorney. The patient tested positive for COVID-19 on February 27 although his son feels he was having symptoms prior to this. Since that time he has been getting progressively worse respiratory symptoms but especially worse in the last 3-4 days. For the last two days he has had very little to no oral intake and not taking his regular medication. Labs taken yesterday at [facility] concerning for hypernatremia with sodium 158. He was given 2L 0.5NSS overnight and repeat labs today with sodium level 160. Paperwork from [facility] note he is for full code and his son wants everything possibly done. Discussed what full code involves with his son including potentially painful, distressing interventions such as central lines, intubation and chest compressions. In light of his multiple co-morbidities, such interventions if he was to progress to needing resuscitation would likely be futile. After discussion with his son he is agrees not for intubation or resuscitation. Allergies Allergy/AdvReac Type Severity Reaction Status Date / Time adhesive AdvReac Unknown Unknown Unverified 03/06/20 13:19 adhesive tape AdvReac Unknown Unknown Unverified 03/06/20 13:19 Home Medications Medication Instructions Recorded Confirmed Type Lactobacillus acidophilus 1,000 mmu cells PO QAM 03/06/20 03/06/20 History [Probiotic Acidophilus] allopurinol 100 mg PO QAM 03/06/20 03/06/20 History ascorbic acid (vitamin C) 500 mg PO QAM 03/06/20 03/06/20 History atenolol 25 mg PO QAM 03/06/20 03/06/20 History atorvastatin 20 mg PO HS 03/06/20 03/06/20 History azithromycin 250 mg PO BID 03/06/20 03/06/20 History cholecalciferol (vitamin D3) 125 mcg PO QAM 03/06/20 03/06/20 History [Vitamin D3] cholestyramine (with sugar) 1 ea PO BID 03/06/20 03/06/20 History dexamethasone 6 mg PO HS 03/06/20 03/06/20 History ferrous sulfate 220 mg PO QAM 03/06/20 03/06/20 History folic acid 0.5 mg PO QAM 03/06/20 03/06/20 History furosemide 20 mg PO QAM 03/06/20 03/06/20 History haloperidol 0.5 mg PO DAILY@1500 03/06/20 03/06/20 History haloperidol 1 mg PO TID 03/06/20 03/06/20 History ipratropium-albuterol 3 ml INHALATION Q6H PRN 03/06/20 03/06/20 History lactulose 45 ml PO QAM 03/06/20 03/06/20 History loratadine 10 mg PO QAM 03/06/20 03/06/20 History multivitamin with minerals 1 tab PO QAM 03/06/20 03/06/20 History rifaximin [Xifaxan] 550 mg PO BID 03/06/20 03/06/20 History spironolactone 25 mg PO QAM 03/06/20 03/06/20 History thiamine HCl (vitamin B1) 100 mg PO QAM 03/06/20 03/06/20 History zinc 50 mg PO BID 03/06/20 03/06/20 History Past Med/Surg History Medical History (Updated 03/07/20 @ 13:03 by Gonzalo Staton MD) BPH (benign prostatic hyperplasia) Chronic gout Cirrhosis Dementia History of alcohol abuse History of tobacco use Iron deficiency anemia Paroxysmal atrial fibrillation Psychosis Traumatic brain injury Surgical History (Updated 03/07/20 @ 13:03 by Gonzalo Staton MD) No pertinent past surgical history Social History Smoking Status: Unknown if ever smoked Hx Alcohol Use: No Hx Substance Use: No Preferred Language: Kazakh Leather Currier Required: No Beliefs That Will Affect Care: None Current Living Situation: Alf Other Information That Helps Us Care for You: No Feels Safe at Home: Yes Assistive Devices: Oxygen - Continuous Review of Systems Review of Systems: Unobtainable due to cognitive status Physical Exam Constitutional: well developed; + not well nourished and no acute distress ENMT: Mouth: + dry oral mucous membranes and + poor dentition Respiratory: + abnormal respiratory pattern (occasional apnea episodes); no respiratory distress Auscultation: + rhonchi (bilateral coarse upper airway sounds) Gastrointestinal (Abdomen): Inspection/Auscultation: + hypoactive bowel sounds Percussion/Palpation: abdomen soft; abdomen nontender, no guarding and abdomen not rigid Neurologic: awake and + confused Psychiatric: Orientation: alert (occasional tracking); + not oriented to person, + not oriented to place and + not oriented to time Results & Data Results & Data ([facility]) Vital Signs (Past 12 Hours) Vital Signs Pulse Pulse Resp BP Pulse Ox 03/06/20 12:43 56 L 20 94 03/06/20 12:18 18 95 03/06/20 12:05 55 L 18 110/82 89 L Diagnostic Findings XR chest 1V portable IMPRESSION: Mild bilateral reticular opacities. Findings may reflect scarring, mild pulmonary edema or a nonspecific pneumonitis. ECG Indication: bradycardia Rate (beats per minute): 58 Rhythm: sinus bradycardia Findings: + prolonged QT Comparison ECG Date: from (Mar 29, 2017) Change: the following changes noted Code Status & VTE Plan Code Status DNR/DNI VTE Prophylaxis Plan VTE Prophylaxis will be ordered: Yes PG Care Time/CCT Total # of Minutes Spent Total Time Spent with Patient: Total time spent is greater than 50% in coordination of care (as documented) at patient's floor/unit and/or counseling patient: Coding Level of Care Code 29743 Initial Inpt Care Lvl 3 Diagnoses Goals of care, counseling/discussion Z71.89 Dehydration with hypernatremia E87.0 Pneumonia due to COVID-19 virus U07.1; J12.89 UTI (urinary tract infection) N39.0 Altered mental state R41.82 Cirrhosis K74.60 Dementia F03.90 Hypertension I10 Iron deficiency anemia D50.9 Paroxysmal atrial fibrillation I48.0 Traumatic brain injury S06.9X9A Chronic gout M1A.9XX0 BPH (benign prostatic hyperplasia) N40.0 Bradycardia R00.1 DVT prophylaxis Z29.9
--- NOTE | 2020-03-06 13:57 | XRay Report ---
XR chest 1V portable HISTORY: 79 years-old Male weakness acute weakness COMPARISON: Chest radiograph 03/14/2017 TECHNIQUE: Portable AP view of the chest FINDINGS: Cardiomediastinal and hilar silhouettes are within normal limits. Calcified plaque of the thoracic ao rta. No pneumothorax, or large pleural effusion. Mild chronic interstitial coarsening. Linear bibasil ar densities suggest atelectasis/scarring. Degenerative changes of the spine and left shoulder. Right shoulder total joint arthroplasty with dystrophic calcifications. IMPRESSION: Mild bilateral reticular opacities. Findings may reflect scarring, mild pulmonary edema o r a nonspecific pneumonitis. ACT 112: Negative or not required by law. The above report was generated using voice recognition software. It may contain grammatical, syntax o r spelling errors. Electronically signed by: Baltazar Perez M.D. 03/06/2020 1:56 PM
[2020-03-06] MEDS: DEXTROSE 5% 1,000 ML IV SCH ×2 (14:05→19:40)
[2020-03-06] MEDS ORDERED: ACETAMINOPHEN 65 ML IV PRN (18:45)
[2020-03-06] MEDS ORDERED: ACETAMINOPHEN 1,000 MG/100 ML VIAL IV PRN (19:15)
[2020-03-06] MEDS ORDERED: haloperidoL 1 MG TAB PO PRN (20:27)
[2020-03-06] MEDS ORDERED: HALOPERIDOL LACTATE 5 MG/ML 1 ML VIAL IM PRN (20:27)
[2020-03-06] MEDS: rifAXIMin 550 MG TABLET PO SCH (21:02)
[2020-03-06] MEDS: ENOXAPARIN INJ 40 MG/0.4 ML SYR SQ SCH (22:00)
[2020-03-06 22:02] LABS: BUN Creatinine Ratio 38.2 (10-20); Blood Urea Nitrogen 57 mg/dl (7-18); Calcium 8.6 mg/dl (8.5-10.1); Carbon Dioxide 24 mmol/L (21-32); Chloride 125 mmol/L (98-107); Est GFR (African American) 52.1; Glucose 255 mg/dl (70-99); Potassium 4.7 mmol/L (3.5-5.1); Sodium 152 mmol/L (136-145)
[2020-03-06] MEDS ORDERED: GLUCOSE 40% GEL 15 GM TUBE PO PRN (23:25)
[2020-03-06] MEDS ORDERED: GLUCAGON FOR INJ 1 MG VIAL SQ PRN (23:25)
[2020-03-06] MEDS ORDERED: CARBOHYDRATES FOR HYPOGLYCEMIA PO PRN (23:25)
[2020-03-06] MEDS ORDERED: GLUCOSE 10 TABS/TUBE PO PRN (23:25)
[2020-03-06] MEDS ORDERED: DEXTROSE 50% 50 ML SYRINGE IV PRN (23:25)
[2020-03-07] MEDS: DEXTROSE 5% 1,000 ML IV SCH ×3 (00:22→10:36)
[2020-03-07] MEDS: INSULIN ASPART 100 UNITS/ML 3 ML PEN SC SCH ×3 (00:31→11:44)
--- NOTE | 2020-03-07 05:03 | Electrocardiogram Report ---
Test Reason : Blood Pressure : / mmHG Vent. Rate : 058 BPM Atrial Rate : 058 BPM P-R Int : 178 ms QRS Dur : 102 ms QT Int : 500 ms P-R-T Axes : 071 -31 -36 degrees QTc Int : 492 ms Poor data quality, interpretation may be adversely affected Sinus bradycardia Left axis deviation Nonspecific ST and T wave abnormality Prolonged QT Abnormal ECG When compared with ECG of 14-MAR-2017 08:27, QT has lengthened Nonspecific ST and T wave abnormality is now Present Confirmed by Puma Brandt ([id number]) on 03/07/2020 5:02:49 AM Referred By: [facility] Confirmed By:Puma Brandt
[2020-03-07 07:15] LABS: Hematocrit (blood only) 46.6 % (42-52); Hemoglobin 14.6 g/dL (14.0-18.0); Immature Granulocytes # (auto) 0.04 K/uL (0.00-0.02); Immature Granulocytes % (auto) 0.4 %; Lymphocytes # (auto) 0.43 K/uL (1.2-3.4); Lymphocytes % (auto) 4.7 %; Mean Corpuscular Hemoglobin 30.5 pg (25-34); Mean Corpuscular Hgb Conc 31.3 g/dL (32-36); Mean Corpuscular Volume 97.3 fL (80-100); Mean Platelet Volume 11.1 fL (7.4-10.4); Monocytes # (auto) 0.86 K/uL (0.11-0.59); Monocytes % (auto) 9.5 %; Neutrophils # (auto) 7.76 K/uL (1.4-6.5); Neutrophils % (auto) 85.4 %; Platelet Count 211 K/uL (130-400); RDW Coefficient of Variation 15.2 % (11.5-14.5); RDW Standard Deviation 53.8 fL (36.4-46.3); Red Blood Count 4.79 M/uL (4.7-6.1); White Blood Count 9.09 K/uL (4.8-10.8)
[2020-03-07] MEDS: rifAXIMin 550 MG TABLET PO SCH (07:24)
[2020-03-07] MEDS: ENOXAPARIN INJ 40 MG/0.4 ML SYR SQ SCH (07:24)
[2020-03-07 07:40] LABS: Alanine Aminotransferase 14 U/L (12-78); Albumin Level 2.5 gm/dl (3.4-5.0); Aspartate Aminotransferase 13 U/L (15-37); BUN Creatinine Ratio 41.4 (10-20); Blood Urea Nitrogen 52 mg/dl (7-18); Calcium 8.5 mg/dl (8.5-10.1); Carbon Dioxide 23 mmol/L (21-32); Chloride 120 mmol/L (98-107); Est GFR (Non-African American) 55.2; Glucose 166 mg/dl (70-99); Potassium 4.5 mmol/L (3.5-5.1); Sodium 148 mmol/L (136-145)
[2020-03-07 07:43] LABS: Albumin Globulin Ratio 0.6 (0.9-2); Alkaline Phosphatase 98 U/L (45-117); Bilirubin,Total 0.6 mg/dl (0.2-1); Globulin 4.4 gm/dl (2.5-4.0); Total Protein 6.9 gm/dl (6.4-8.2)
[2020-03-07] MEDS ORDERED: DEXAMETHASONE SOD PHOSPHATE 6 MG in SYRINGE 0 ML IV SCH (08:00)
--- NOTE | 2020-03-07 08:59 | XRay Report ---
XR chest 1V portable CLINICAL HISTORY: Shortness of breath COMPARISON STUDY: Chest radiograph March 06, 2020. FINDINGS: Right shoulder arthroplasty and severe osteoarthritis of the left glenohumeral joint are in cidentally noted. There is moderate cardiomegaly. Bilateral airspace opacities have increased. No pne umothorax or pleural effusion is noted. Several old right rib fractures are incidentally noted. IMPRESSION: Increase in bilateral airspace opacities which favors an infectious process. Pulmonary e sulaiman could appear similar but is considered less likely. Radiographic follow-up is recommended. ACT 112: Negative or not required by law. Electronically signed by: Glynn Bartholomew M.D. 03/07/2020 8:57 AM
[2020-03-07] MEDS ORDERED: ADVANCED PROBIOTIC 1250 MG CAPSULE PO SCH (09:00)
[2020-03-07] MEDS ORDERED: CEROVITE ADV FORMULA TAB PO SCH (09:00)
[2020-03-07] MEDS ORDERED: LORATADINE 10 MG TAB PO SCH (09:00)
[2020-03-07] MEDS ORDERED: THIAMINE HCL 100 MG TAB PO SCH (09:00)
[2020-03-07] MEDS ORDERED: CHOLECALCIFEROL 1,000 UNITS 25 MCG TAB PO SCH (09:00)
[2020-03-07] MEDS ORDERED: MoRPHine SULFATE 2 MG/ML CARP IV STA (11:38)
[2020-03-07] MEDS: MoRPHine SULFATE 2 MG/ML CARP IV PRN ×3 (11:47→18:19)
[2020-03-07] MEDS ORDERED: cefTRIAXone SODIUM 2,000 MG in DEXTROSE 5% 50 ML IV SCH (14:00)
[2020-03-07] MEDS ORDERED: LORazepam 0.5 MG TAB PO PRN (14:12)
[2020-03-07] MEDS ORDERED: ATROPINE SULFATE 1% OP SOLN 2 ML BTL SL PRN (14:12)
[2020-03-07] MEDS ORDERED: ONDANSETRON INJ 2 MG/ML 2 ML VIAL IV PRN (14:12)
[2020-03-07] MEDS ORDERED: GLYCOPYRROLATE 0.2 MG/ML VIAL IV PRN (14:12)
--- NOTE | 2020-03-07 19:28 | Hospitalist Progress Note ---
Date of Service March 07, 2020 Assessment & Plan (1) Acute respiratory failure with hypoxia: Worsening hypoxic resp failure clinically & radiographically despite supportive care overnight including IVF, IV antibiotics, steroids, etc for COVID-19 pneumonia. Obtunded during my exam - worrisome for rising CO2 levels. After my visit I called and spoke with Luis, the pt's son and POA. We had a lengthy discussion regarding his father's worsening status. I recommended a transition to comfort care measures. Explained that his chances of recovery were very low in light of his advanced dementia, poor nutrition, comorbidities, etc. He wanted to talk with his brother about this, and also have a zoom call session with his father. After Luis had a chance to see his father via zoom he notified the nurse that he & his brother have opted for comfort care pathway/measures. Thus, early this afternoon, we stopped all unnecessary meds/fluids/labs/vitals/etc - and transitioned to comfort care. (2) Pneumonia due to COVID-19 virus: See above. Transition to comfort care. Stop steroids, abx, etc. (3) Metabolic encephalopathy: 2nd to hypernatremia, UTI, and COVID-19 infection. Other factors such as rising CO2 levels cannot be excluded. Transitioning to comfort care. (4) Dehydration with hypernatremia: Stop hypotonic fluids. (5) UTI (urinary tract infection): stop IV antibiotics (6) Cirrhosis: noted 2nd to h/o etoh abuse ammonia level yesterday wnl (7) Dementia: suspect advanced given his severe contractures on exam (8) Hypertension: Stop atenolol, spironolactone and lasix. (9) Iron deficiency anemia: (10) Paroxysmal atrial fibrillation: (11) Traumatic brain injury: Prior history of such -- noted likely played a role in development of dementia (12) Chronic gout: stop allopurinol (13) BPH (benign prostatic hyperplasia): cont lui (14) Bradycardia: 2nd to severe lethargy/obtundation, recent beta raul use, etc (15) Goals of care, counseling/discussion: DNR/DNI spoke with son Luis this am, then again this evening patient transitioned to comfort care pathway as supported by Luis and his brother sons had opportunity to do zoom call with their father support given morphine/ativan/haldol/zofran prn for comfort care meds can d/c HFNC and place on face mask or simple NC Admission and Anticipated Discharge Date Admission Date: March 06, 2020 Subjective called by nursing staff this am that patient was having labored, irregular breathing on NC O2. verbal order given for starting of high-flow NC. during my bedside rounds patient was obtunded/unresponsive. he did not respond to voice, pain or touch. his color was poor and he was clammy. unable to elicit any history or ROS. Review of Systems Review of Systems: Unobtainable due to reduced consciousness Physical Exam Constitutional: + acute distress, + altered mental status, + frail appearing and + lethargic; + not well developed and + not well nourished Eyes: PERRL (but sluggish) ENMT: Mouth: + dry oral mucous membranes Respiratory: + retractions (subcostal ) Auscultation: + crackles (bases, with course BS throughout ); no wheezes Cardiovascular: Rate/Rhythm: + bradycardic Heart Sounds: normal S1 and norm al S2; no murmur Vessels: posterior tibial pulses present (but 1+) and dorsalis pedis pulses present (but 1+); no JVD Extremities: + edema; + abnormal capillary refill Gastrointestinal (Abdomen): normal bowel sounds, soft, nontender, no hepatosplenomegaly Neurologic: increased tone all 4 limbs with contractures; obtunded Psychiatric: Orientation: + not alert Results & Data Results & Data ([facility]) Vital Signs (Past 12 Hours) Vital Signs Pulse Pulse Resp BP Pulse Ox 03/07/20 19:10 41 L 14 110/67 03/07/20 15:56 34 L 12 90/54 L 03/07/20 11:31 38 L 21 92 03/07/20 09:42 36 L 20 93 03/07/20 08:00 59 L Laboratory Results Laboratory Results - last 24 hr 03/06/20 03/06/20 03/07/20 20:20 21:18 00:27 WBC RBC Hgb Hct MCV MCH MCHC RDW Std Deviation RDW Coeff of Mayo Plt Count MPV Immature Gran % (Auto) Neut % (Auto) Lymph % (Auto) Sawyer % (Auto) Eos % (Auto) Baso % (Auto) Neut # (Auto) Lymph # (Auto) Sawyer # (Auto) Eos # (Auto) Baso # (Auto) Immature Gran # (Auto) Sodium 152 H Potassium 4.7 Chloride 125 H Carbon Dioxide 24 Anion Gap 3.0 BUN 57 H Creatinine 1.48 H Est Cr Clr Drug Dosing Not Reportable Est GFR ( Amer) 52.1 Est GFR (Non-Af Amer) 45.0 BUN/Creatinine Ratio 38.2 H Glucose 255 H POC Glucose 221 H Calcium 8.6 Total Bilirubin AST ALT Alkaline Phosphatase Total Protein Albumin Globulin Albumin/Globulin Ratio Nasal Screen MRSA (PCR) Negative 03/07/20 03/07/20 03/07/20 06:07 06:11 06:11 WBC 9.09 RBC 4.79 Hgb 14.6 Hct 46.6 MCV 97.3 MCH 30.5 MCHC 31.3 L RDW Std Deviation 53.8 H RDW Coeff of Mayo 15.2 H Plt Count 211 MPV 11.1 H Immature Gran % (Auto) 0.4 Neut % (Auto) 85.4 Lymph % (Auto) 4.7 Sawyer % (Auto) 9.5 Eos % (Auto) 0.0 Baso % (Auto) 0.0 Neut # (Auto) 7.76 H Lymph # (Auto) 0.43 L Sawyer # (Auto) 0.86 H Eos # (Auto) 0.00 Baso # (Auto) 0.00 Immature Gran # (Auto) 0.04 H Sodium 148 H Potassium 4.5 Chloride 120 H Carbon Dioxide 23 Anion Gap 5.0 BUN 52 H Creatinine 1.25 Est Cr Clr Drug Dosing Not Reportable Est GFR ( Amer) 64.0 Est GFR (Non-Af Amer) 55.2 BUN/Creatinine Ratio 41.4 H Glucose 166 H POC Glucose 150 H Calcium 8.5 Total Bilirubin 0.6 AST 13 L ALT 14 Alkaline Phosphatase 98 Total Protein 6.9 Albumin 2.5 L Globulin 4.4 H Albumin/Globulin Ratio 0.6 L Nasal Screen MRSA (PCR) 03/07/20 11:43 WBC RBC Hgb Hct MCV MCH MCHC RDW Std Deviation RDW Coeff of Mayo Plt Count MPV Immature Gran % (Auto) Neut % (Auto) Lymph % (Auto) Sawyer % (Auto) Eos % (Auto) Baso % (Auto) Neut # (Auto) Lymph # (Auto) Sawyer # (Auto) Eos # (Auto) Baso # (Auto) Immature Gran # (Auto) Sodium Potassium Chloride Carbon Dioxide Anion Gap BUN Creatinine Est Cr Clr Drug Dosing Est GFR ( Amer) Est GFR (Non-Af Amer) BUN/Creatinine Ratio Glucose POC Glucose 170 H Calcium Total Bilirubin AST ALT Alkaline Phosphatase Total Protein Albumin Globulin Albumin/Globulin Ratio Nasal Screen MRSA (PCR) PG Care Time/CCT Total # of Minutes Spent Total Time Spent with Patient: Total time spent is greater than 50% in coordination of care (as documented) at patient's floor/unit and/or counseling patient: Coding Level of Care Code 27658 Subseq Hosp Care Lvl 3 Diagnoses Acute respiratory failure with hypoxia J96.01 Pneumonia due to COVID-19 virus U07.1; J12.89 Metabolic encephalopathy G93.41 Dehydration with hypernatremia E87.0 UTI (urinary tract infection) N39.0 Cirrhosis K74.60 Dementia F03.90 Hypertension I10 Iron deficiency anemia D50.9 Paroxysmal atrial fibrillation I48.0 Traumatic brain injury S06.9X9A Chronic gout M1A.9XX0 BPH (benign prostatic hyperplasia) N40.0 Bradycardia R00.1 Goals of care, counseling/discussion Z71.89
--- NOTE | 2020-03-07 21:19 | Electrocardiogram Report ---
Test Reason : Blood Pressure : / mmHG Vent. Rate : 049 BPM Atrial Rate : 049 BPM P-R Int : 216 ms QRS Dur : 098 ms QT Int : 508 ms P-R-T Axes : 076 -17 041 degrees QTc Int : 458 ms Sinus bradycardia with 1st degree A-V block Nonspecific ST and T wave abnormality Abnormal ECG When compared with ECG of 06-MAR-2020 12:18, MA interval has increased Nonspecific T wave abnormality, worse in Lateral leads Confirmed by Puma Brandt ([id number]) on 03/07/2020 9:19:46 PM Referred By: [facility] Confirmed By:Puma Brandt
[2020-03-08] MEDS: MoRPHine SULFATE 2 MG/ML CARP IV PRN ×5 (11:00→20:53)
--- NOTE | 2020-03-08 17:25 | Hospitalist Progress Note ---
Date of Service March 08, 2020 Assessment & Plan (1) Palliative care patient: Comfort care pathway in place. Continue morphine/ativan/haldol/zofran prn. Continue NC O2. Lui prn. Anticipate passing next 2-3 days or less. (2) Acute respiratory failure with hypoxia: 2nd COVID-19 pneumonia. (3) Pneumonia due to COVID-19 virus: See above. Transitioned to comfort care on 03/07/20. (4) Metabolic encephalopathy: 2nd to hypernatremia, UTI, and COVID-19 infection. Other factors such as rising CO2 levels could not be excluded. Transitioned to comfort care. Fully unresponsive at this time. (5) Dehydration with hypernatremia: at admission (6) UTI (urinary tract infection): 2nd enterobacter (7) Cirrhosis: 2nd to h/o etoh abuse (8) Dementia: suspect advanced given his severe contractures on exam (9) Hypertension: all meds stopped (10) Iron deficiency anemia: (11) Paroxysmal atrial fibrillation: severe bradycardia over last 48 hours (12) Traumatic brain injury: Prior history of such -- noted likely played a role in development of dementia (13) Chronic gout: stopped allopurinol (14) BPH (benign prostatic hyperplasia): lui as needed for comfort/palliation (15) Bradycardia: 2nd to severe lethargy/obtundation, recent beta raul use, etc (16) Acute renal failure due to tubular necrosis: (17) Goals of care, counseling/discussion: DNR/DNI spoke with son Luis on 03/07; Luis confirmed with his brother that their wishes were to transition to comfort care patient transitioned to comfort care pathway at that time updated Luis again on 03/08 offered support Admission and Anticipated Discharge Date Admission Date: March 06, 2020 Subjective unresponsive during the visit. snoring. apneas noted overnight by staff. nursing providing morphine for comfort prn. little UOP. Review of Systems Review of Systems: Unobtainable due to reduced consciousness Physical Exam Constitutional: + altered mental status, + frail appearing and + lethargic; + not well developed and + not well nourished ENMT: Mouth: + dry oral mucous membranes Respiratory: Auscultation: + crackles (bases, with course BS throughout ); no wheezes Cardiovascular: Rate/Rhythm: + bradycardic Heart Sounds: normal S1 and normal S2; no murmur Vessels: posterior tibial pulses present (but 1+) and dorsalis pedis pulses present (but 1+); no JVD Extremities: + edema; + abnormal capillary refill Gastrointestinal (Abdomen): normal bowel sounds, soft, nontender, no hepatosplenomegaly Psychiatric: Orientation: + not alert Results & Data Results & Data ([facility]) Vital Signs (Past 12 Hours) Vital Signs Temp Pulse Resp BP Pulse Ox 03/08/20 07:52 36 C L 42 L 16 122/64 81 L PG Care Time/CCT Total # of Minutes Spent Total Time Spent with Patient: Total time spent is greater than 50% in coordination of care (as documented) at patient's floor/unit and/or counseling patient: Coding Level of Care Code 76944 Subseq Hosp Care Lvl 1 Diagnoses Palliative care patient Z51.5 Acute respiratory failure with hypoxia J96.01 Pneumonia due to COVID-19 virus U07.1; J12.89 Metabolic encephalopathy G93.41 Dehydration with hypernatremia E87.0 UTI (urinary tract infection) N39.0 Cirrhosis K74.60 Dementia F03.90 Hypertension I10 Iron deficiency anemia D50.9 Paroxysmal atrial fibrillation I48.0 Traumatic brain injury S06.9X9A Chronic gout M1A.9XX0 BPH (benign prostatic hyperplasia) N40.0 Bradycardia R00.1 Acute renal failure due to tubular necrosis N17.0 Goals of care, counseling/discussion Z71.89
[2020-03-08] MEDS: DEXTROSE 5% 1,000 ML IV SCH (19:18)
--- NOTE | 2020-03-09 10:33 | Hospitalist Progress Note ---
Date of Service March 09, 2020 Assessment & Plan (1) Palliative care patient: Comfort care pathway in place. Continue morphine/ativan/haldol/zofran prn. Continue NC O2. Lui prn. Anticipate passing next 2-3 days or less, no distress at all today adjust comfort medications as needed will update family (2) Acute respiratory failure with hypoxia: 2nd COVID-19 pneumonia. (3) Pneumonia due to COVID-19 virus: See above. Transitioned to comfort care on 03/07/20. (4) Metabolic encephalopathy: 2nd to hypernatremia, UTI, and COVID-19 infection. Other factors such as rising CO2 levels could not be excluded. Transitioned to comfort care. Fully unresponsive at this time. (5) Dehydration with hypernatremia: at admission (6) UTI (urinary tract infection): 2nd enterobacter (7) Cirrhosis: 2nd to h/o etoh abuse (8) Dementia: suspect advanced given his severe contractures on exam (9) Hypertension: all meds stopped (10) Iron deficiency anemia: Hemoglobin currently within normal limits likely due to hemoconcentration. Repeat CBC with a.m. labs (11) Paroxysmal atrial fibrillation: severe bradycardia over last 48 hours (12) Traumatic brain injury: Prior history of such -- noted likely played a role in development of dementia (13) Chronic gout: stopped allopurinol (14) BPH (benign prostatic hyperplasia): lui as needed for comfort/palliation (15) Bradycardia: 2nd to severe lethargy/obtundation, recent beta raul use, etc (16) Acute renal failure due to tubular necrosis: (17) Goals of care, counseling/discussion: DNR/DNI Dr. Keenan spoke with son Luis on 03/07; Luis confirmed with his brother that their wishes were to transition to comfort care patient transitioned to comfort care pathway at that time will update family later today Admission and Anticipated Discharge Date Admission Date: March 06, 2020 Subjective patient resting comfortably spoke with RN, she gave him some Atropine but no Morphine required Review of Systems Review of Systems: Unobtainable due to reduced consciousness Physical Exam Constitutional: + ill appearing and comfortable; no acute distress ENMT: Mouth: + dry oral mucous membranes Respiratory: normal respiratory effort (shallow) Auscultation: + rhonchi; no wheezes Cardiovascular: RRR, no murmur, no edema Gastrointestinal (Abdomen): normal bowel sounds, soft, nontender, no hepatosplenomegaly Musculoskeletal: Head/Neck/Chest: normocephalic, head atraumatic and neck supple Extremities: extremities normal to inspection and + cyanosis; no clubbing and no petechiae Skin: no rashes, warm and dry Psychiatric: Orientation: alert; + not oriented x 3 Results & Data Results & Data ([place]) Medications Administered Current Inpatient Medications Atropine Sulfate (Atropine Sulfate 1% Op Soln 2 Ml Btl) 4 drops SL Q1H PRN PRN Reason: Secretions or Pulm Congestion Stop: 04/06/20 14:11 Dextrose (Dextrose 50% 50 Ml Syringe) 25 - 50 ml IV UD PRN; Protocol PRN Reason: Hypoglycemia Protocol Stop: 04/05/20 23:24 Glucagon (Glucagon For Inj 1 Mg Vial) 1 mg SQ UD PRN; Protocol PRN Reason: Hypoglycemia Protocol Stop: 04/05/20 23:24 Glucose (Glucose 10 Tabs/Tube) 4 - 8 tabs PO UD PRN; Protocol PRN Reason: Hypoglycemia Protocol Stop: 04/05/20 23:24 Glucose (Glucose 40% Gel 15 Gm Tube) 15 - 30 gm PO UD PRN; Protocol PRN Reason: Hypoglycemia Protocol Stop: 04/05/20 23:24 Glycopyrrolate (Glycopyrrolate 0.2 Mg/Ml Vial) 0.2 mg IV Q4H PRN PRN Reason: Secretions or Pulm Congestion Stop: 04/06/20 14:11 Last Admin: 03/08/20 12:23 Dose: 0.2 mg Documented by: Haloperidol (Haloperidol 1 Mg Tab) 1 mg PO Q8H PRN PRN Reason: Delirium (risk to self/others) Stop: 04/05/20 20:29 Acetaminophen (Ofirmev) 1,000 mg in 100 mls @ 400 mls/hr IV Q8H PRN PRN Reason: PAIN OR FEVER Stop: 03/09/20 19:14 Lorazepam (Ativan) 0.5 mg in 1 mls @ 1 mls/min IV Q4H PRN PRN Reason: Anxiety/Agitation Stop: 04/06/20 14:11 Lorazepam (Lorazepam 0.5 Mg Tab) 0.5 mg PO Q4H PRN PRN Reason: Anxiety/Agitation Stop: 04/06/20 14:11 Morphine Sulfate (Morphine Sulfate 2 Mg/Ml Carp) 2 mg IV Q1H PRN PRN Reason: Pain Stop: 03/21/20 11:37 Last Admin: 03/08/20 20:53 Dose: 2 mg Documented by: Ondansetron HCl (Ondansetron Inj 2 Mg/Ml 2 Ml Vial) 4 mg IV Q4H PRN PRN Reason: Nausea And Vomiting Stop: 04/06/20 14:11 PG Care Time/CCT Total # of Minutes Spent Total Time Spent with Patient: Total time spent is greater than 50% in coor dination of care (as documented) at patient's floor/unit and/or counseling patient: Coding Level of Care Code 83833 Subseq Hosp Care Lvl 1 Diagnoses Palliative care patient Z51.5 Acute respiratory failure with hypoxia J96.01 Pneumonia due to COVID-19 virus U07.1; J12.89 Metabolic encephalopathy G93.41 Dehydration with hypernatremia E87.0 UTI (urinary tract infection) N39.0 Cirrhosis K74.60 Dementia F03.90 Hypertension I10 Iron deficiency anemia D50.9 Paroxysmal atrial fibrillation I48.0 Traumatic brain injury S06.9X9A Chronic gout M1A.9XX0 BPH (benign prostatic hyperplasia) N40.0 Bradycardia R00.1 Acute renal failure due to tubular necrosis N17.0 Goals of care, counseling/discussion Z71.89
[2020-03-09] MEDS: MoRPHine SULFATE 2 MG/ML CARP IV PRN (14:14)
[2020-03-10] MEDS: MoRPHine SULFATE 2 MG/ML CARP IV PRN ×7 (01:13→17:52)
[2020-03-10] MEDS: LORazepam 0.5 MG/1 ML VIAL IV PRN ×4 (01:51→23:31)
--- NOTE | 2020-03-10 22:26 | Hospitalist Progress Note ---
Date of Service March 10, 2020 Assessment & Plan (1) Palliative care patient: Comfort care pathway in place. Continue morphine/ativan/haldol/zofran prn. Continue NC O2. Lui prn. Anticipate passing next 2-3 days or less, no distress at all today adjust comfort medications as needed (2) Acute respiratory failure with hypoxia: 2nd COVID-19 pneumonia. (3) Pneumonia due to COVID-19 virus: See above. Transitioned to comfort care on 03/07/20. (4) Metabolic encephalopathy: 2nd to hypernatremia, UTI, and COVID-19 infection. Other factors such as rising CO2 levels could not be excluded. Transitioned to comfort care. Fully unresponsive at this time. (5) Dehydration with hypernatremia: at admission (6) UTI (urinary tract infection): 2nd enterobacter (7) Cirrhosis: 2nd to h/o etoh abuse (8) Dementia: suspect advanced given his severe contractures on exam (9) Hypertension: all meds stopped (10) Iron deficiency anemia: Hemoglobin currently within normal limits likely due to hemoconcentration. Repeat CBC with a.m. labs (11) Paroxysmal atrial fibrillation: severe bradycardia over last 48 hours (12) Traumatic brain injury: Prior history of such -- noted likely played a role in development of dementia (13) Chronic gout: stopped allopurinol (14) BPH (benign prostatic hyperplasia): lui as needed for comfort/palliation (15) Bradycardia: 2nd to severe lethargy/obtundation, recent beta raul use, etc (16) Acute renal failure due to tubular necrosis: (17) Goals of care, counseling/discussion: DNR/DNI Dr. Keenan spoke with son Luis on 03/07; Luis confirmed with his brother that their wishes were to transition to comfort care patient transitioned to comfort care pathway at that time will update family later today Admission and Anticipated Discharge Date Admission Date: March 06, 2020 Subjective patient resting comfortably, asked RN to remove oxygen, use Morphine PRN comfortable again in afternoon on recheck Review of Systems Review of Systems: Unobtainable due to reduced consciousness Physical Exam Constitutional: + ill appearing, comfortable and + lethargic; no acute distress ENMT: Mouth: + dry oral mucous membranes Respiratory: normal respiratory effort (shallow) Auscultation: + rhonchi; no wheezes Cardiovascular: RRR, no murmur, no edema Gastrointestinal (Abdomen): normal bowel sounds, soft, nontender, no hepatosplenomegaly Musculoskeletal: Head/Neck/Chest: normocephalic, head atraumatic and neck supple Extremities: extremities normal to inspection and + cyanosis; no clubbing and no petechiae Skin: no rashes, warm and dry Psychiatric: Orientation: + not alert and + not oriented x 3 Results & Data Results & Data ([facility]) Vital Signs (Past 12 Hours) Vital Signs Pulse Ox 03/10/20 15:07 71 L 03/10/20 15:06 71 L Medications Administered Current Inpatient Medications Atropine Sulfate (Atropine Sulfate 1% Op Soln 2 Ml Btl) 4 drops SL Q1H PRN PRN Reason: Secretions or Pulm Congestion Stop: 04/06/20 14:11 Dextrose (Dextrose 50% 50 Ml Syringe) 25 - 50 ml IV UD PRN; Protocol PRN Reason: Hypoglycemia Protocol Stop: 04/05/20 23:24 Glucagon (Glucagon For Inj 1 Mg Vial) 1 mg SQ UD PRN; Protocol PRN Reason: Hypoglycemia Protocol Stop: 04/05/20 23:24 Glucose (Glucose 10 Tabs/Tube) 4 - 8 tabs PO UD PRN; Protocol PRN Reason: Hypoglycemia Protocol Stop: 04/05/20 23:24 Glucose (Glucose 40% Gel 15 Gm Tube) 15 - 30 gm PO UD PRN; Protocol PRN Reason: Hypoglycemia Protocol Stop: 04/05/20 23:24 Glycopyrrolate (Glycopyrrolate 0.2 Mg/Ml Vial) 0.2 mg IV Q4H PRN PRN Reason: Secretions or Pulm Congestion Stop: 04/06/20 14:11 Last Admin: 03/08/20 12:23 Dose: 0.2 mg Documented by: Haloperidol (Haloperidol 1 Mg Tab) 1 mg PO Q8H PRN PRN Reason: Delirium (risk to self/others) Stop: 04/05/20 20:29 Lorazepam (Ativan) 0.5 mg in 1 mls @ 1 mls/min IV Q4H PRN PRN Reason: Anxiety/Agitation Stop: 04/06/20 14:11 Last Admin: 03/10/20 15:36 Dose: 1 mls/min Documented by: Lorazepam (Lorazepam 0.5 Mg Tab) 0.5 mg PO Q4H PRN PRN Reason: Anxiety/Agitation Stop: 04/06/20 14:11 Morphine Sulfate (Morphine Sulfate 2 Mg/Ml Carp) 2 mg IV Q1H PRN PRN Reason: Pain Stop: 03/21/20 11:37 Last Admin: 03/10/20 17:52 Dose: 2 mg Documented by: Ondansetron HCl (Ondansetron Inj 2 Mg/Ml 2 Ml Vial) 4 mg IV Q4H PRN PRN Reason: Nausea And Vomiting Stop: 04/06/20 14:11 PG Care Time/CCT Total # of Minutes Spent Total Time Spent with Patient: Total time spent is greater than 50% in coordination of care (as documented) at patient's floor/unit and/or counseling patient: Coding Level of Care Code 34724 Subseq Hosp Care Lvl 1 Diagnoses Palliative care patient Z51.5 Acute respiratory failure with hypoxia J96.01 Pneumonia due to COVID-19 virus U07.1; J12.89 Metabolic encephalopathy G93.41 Dehydration with hypernatremia E87.0 UTI (urinary tract infection) N39.0 Cirrhosis K74.60 Dementia F03.90 Hypertension I10 Iron deficiency anemia D50.9 Paroxysmal atrial fibrillation I48.0 Traumatic brain injury S06.9X9A Chronic gout M1A.9XX0 BPH (benign prostatic hyperplasia) N40.0 Bradycardia R00.1 Acute renal failure due to tubular necrosis N17.0 Goals of care, counseling/discussion Z71.89
[2020-03-11] MEDS: MoRPHine SULFATE 2 MG/ML CARP IV PRN ×4 (01:39→09:23)
[2020-03-11] MEDS: LORazepam 0.5 MG/1 ML VIAL IV PRN (11:36)
[2020-03-11] MEDS ORDERED: MoRPHine SULFATE 4 MG/ML 1 ML CARP\\VIAL IV PRN (12:39)
--- NOTE | 2020-03-11 13:02 | Death Pronouncement Note ---
Date of Service March 11, 2020 Pronouncement Note Admission Date Admission Date: March 06, 2020 Date and Time of Date of : 03/11/20 Time of : 12:59 PCOD Preliminary cause of : COVID-19 Contributing Factors (1) Palliative care patient: (2) Acute respiratory failure with hypoxia: (3) Pneumonia due to COVID-19 virus: (4) Metabolic encephalopathy: (5) Dehydration with hypernatremia: (6) UTI (urinary tract infection): (7) Cirrhosis: (8) Dementia: (9) Hypertension: (10) Iron deficiency anemia: (11) Paroxysmal atrial fibrillation: (12) Traumatic brain injury: (13) Chronic gout: (14) BPH (benign prostatic hyperplasia): (15) Bradycardia: (16) Acute renal failure due to tubular necrosis: (17) Goals of care, counseling/discussion: Hospital Course Hospital Course: see discharge summary for details Additional Data Confirmation of : no pulse, no respirations, no heart sounds and pupils fixed and dilated Family: contacted Attending/PCP notified?: Yes Attending physician: Dany Diamond, DO Was code activated?: No Autopsy requested?: No flat examiner notified?: No Organ bank notified?: No Advance directives: No Coding Level of Care Code None Diagnoses Palliative care patient Z51.5 Acute respiratory failure with hypoxia J96.01 Pneumonia due to COVID-19 virus U07.1; J12.89 Metabolic encephalopathy G93.41 Dehydration with hypernatremia E87.0 UTI (urinary tract infection) N39.0 Cirrhosis K74.60 Dementia F03.90 Hypertension I10 Iron deficiency anemia D50.9 Paroxysmal atrial fibrillation I48.0 Traumatic brain injury S06.9X9A Chronic gout M1A.9XX0 BPH (benign prostatic hyperplasia) N40.0 Bradycardia R00.1 Acute renal failure due to tubular necrosis N17.0 Goals of care, counseling/discussion Z71.89
--- NOTE | 2020-03-11 13:05 | Discharge Summary ---
Date of Service March 11, 2020 Admission HPI Per Admitting Provider Primary Care Provider: Pavel Jarvis is a 79-year-old male with dementia and liver cirrhosis who presents from [facility] by ambulance due to altered mental status and hypoxia. Unable to get any history from patient as non-verbal and unable to communicate by other means. History was taken from [facility] notes and from his son Luis who is power of labor relations teacher. The patient tested positive for COVID-19 on February 27 although his son feels he was having symptoms prior to this. Since that time he has been getting progressively worse respiratory symptoms but especially worse in the last 3-4 days. For the last two days he has had very little to no oral intake and not taking his regular medication. Labs taken yesterday at [facility] concerning for hypernatremia with sodium 158. He was given 2L 0.5NSS overnight and repeat labs today with sodium level 160. Paperwork from [facility] note he is for full code and his son wants everything possibly done. Discussed what full code involves with his son including potentially painful, distressing interventions such as central lines, intubation and chest compressions. In light of his multiple co-morbidities, such interventions if he was to progress to needing resuscitation would likely be futile. After discussion with his son he is agrees not for intubation or resuscitation. Principal Diagnosis COVID 19 pneumonia Discharge Exam no pulse, no respirations, no heart sounds, no breath sounds, pupils fixed, unresponsive Discharge Data Allergies Allergy/AdvReac Type Severity Reaction Status Date / Time adhesive AdvReac Unknown Unknown Unverified 03/06/20 13:19 adhesive tape AdvReac Unknown Unknown Unverified 03/06/20 13:19 Consultations 03/06/20 13:27 ED Decision to Admit Stat Ordered Studies 03/06/20 12:07 CT head/brain wo con Stat Hospital Course (1) Palliative care patient: Comfort care pathway in place. Continue morphine/ativan/haldol/zofran prn. passed comfortably on 03/11 at 12:59, family notified by phone (2) Acute respiratory failure with hypoxia: 2nd COVID-19 pneumonia. (3) Pneumonia due to COVID-19 virus: See above. Transitioned to comfort care on 03/07/20. (4) Metabolic encephalopathy: 2nd to hypernatremia, UTI, and COVID-19 infection. Other factors such as rising CO2 levels could not be excluded. Transitioned to comfort care. Fully unresponsive at this time. (5) Dehydration with hypernatremia: at admission (6) UTI (urinary tract infection): 2nd enterobacter (7) Cirrhosis: 2nd to h/o etoh abuse (8) Dementia: suspect advanced given his severe contractures on exam (9) Hypertension: all meds stopped (10) Iron deficiency anemia: Hemoglobin currently within normal limits likely due to hemoconcentration. Repeat CBC with a.m. labs (11) Paroxysmal atrial fibrillation: severe bradycardia over last 48 hours (12) Traumatic brain injury: Prior history of such -- noted likely played a role in development of dementia (13) Chronic gout: stopped allopurinol (14) BPH (benign prostatic hyperplasia): lui as needed for comfort/palliation (15) Bradycardia: 2nd to severe lethargy/obtundation, recent beta raul use, etc (16) Acute renal failure due to tubular necrosis: (17) Goals of care, counseling/discussion: DNR/DNI Dr. Keenan spoke with son Luis on 03/07; Luis confirmed with his brother that their wishes were to transition to comfort care patient transitioned to comfort care pathway at that time will update family later today Total Time Total Time Spent Total Time Spent (In Minutes): 15 minutes Total Time Includes: Examination of the Patient Discharge Plan Discharge Items Reason For Visit: COVID-19 PNA, UTI, HYPERNATREMIA Follow-up/Referrals: Magali Bobo [Primary Care Provider] - Medications and DC Order Prescriptions: No Action atorvastatin 20 mg tablet 20 mg PO HS RF: 0 atenolol 25 mg tablet 25 mg PO QAM RF: 0 haloperidol 1 mg tablet 0.5 mg PO DAILY@1500 RF: 0 allopurinol 100 mg tablet 100 mg PO QAM RF: 0 dexamethasone 4 mg tablet 6 mg PO HS RF: 0 folic acid 1 mg tablet 0.5 mg PO QAM RF: 0 ferrous sulfate 220 mg (44 mg iron)/5 mL Solution 220 mg PO QAM RF: 0 thiamine HCl (vitamin B1) 100 mg Tablet 100 mg PO QAM RF: 0 spironolactone 25 mg tablet 25 mg PO QAM RF: 0 ascorbic acid (vitamin C) 500 mg Tablet 500 mg PO QAM RF: 0 furosemide 20 mg tablet 20 mg PO QAM RF: 0 multivitamin with minerals Tablet 1 tab PO QAM RF: 0 loratadine 10 mg Tablet 10 mg PO QAM RF: 0 cholestyramine (with sugar) 4 gram powder in packet 1 ea PO BID RF: 0 lactulose 10 gram/15 mL solution 45 ml PO QAM RF: 0 cholecalciferol (vitamin D3) [Vitamin D3] 125 mcg (5,000 unit) Tablet 125 mcg PO QAM RF: 0 Probiotic Acidophilus 1.5 mg (250 million cell) Capsule 1,000 mmu cells PO QAM RF: 0 ipratropium-albuterol 0.5 mg-3 mg(2.5 mg base)/3 mL solution for nebulization 3 ml INHALATION Q6H PRN (Reason: cough/congestion) RF: 0 azithromycin 250 mg tablet 250 mg PO BID RF: 0 haloperidol 1 mg tablet 1 mg PO TID RF: 0 zinc 50 mg Tablet 50 mg PO BID RF: 0 Xifaxan 550 mg tablet 550 mg PO BID RF: 0 Admission Data Admit Date/Time: 03/06/20 16:08 Attending Provider: Dany Diamond Admit Provider: Gonzalo Staton Primary Care Provider: Magali Bobo Other Providers: Rona Bobo ; Gonzalo Staton Coding Level of Care Code D/C Day Management <30 mins Diagnoses Palliative care patient Z51.5 Acute respiratory failure with hypoxia J96.01 Pneumonia due to COVID-19 virus U07.1; J12.89 Metabolic encephalopathy G93.41 Dehydration with hypernatremia E87.0 UTI (urinary tract infection) N39.0 Cirrhosis K74.60 Dementia F03.90 Hypertension I10 Iron deficiency anemia D50.9 Paroxysmal atrial fibrillation I48.0 Traumatic brain injury S06.9X9A Chronic gout M1A.9XX0 BPH (benign prostatic hyperplasia) N40.0 Bradycardia R00.1 Acute renal failure due to tubular necrosis N17.0 Goals of care, counseling/discussion Z71.89
== END 2020-03-11 14:20 | disposition expired | DRG 177 ==
LOC: ED 11:55 → SUATTDRO 16:08 → 2E 16:08 → 3E 03-09 12:56